=== PATIENT | male | born 1965 | race African-American/Black ===

== ENCOUNTER 2017-03-04 09:25 | Inpatient (IN) ==
[2017-03-04] MEDS ORDERED: SODIUM CHLORIDE 0.9% 1,000 ML IV STA (10:28)
[2017-03-04] MEDS ORDERED: ONDANSETRON 4 MG/2 ML VIAL IV STA (10:28)
--- NOTE | 2017-03-04 10:46 | XRay Report ---
XR abdomen complete w decub Indication: Nausea and vomiting with diarrhea. Scattered air-fluid levels are present. No small bowel dilatation shown. Stool and gas is seen throughout colon, normal amount. No free air. Impression: Gastroenteritis versus mild ileus. No obstruction. PROCEDURE INTERPRETED AT [facility] DEPARTMENT OF RADIOLOGY Final Report Signed by: Amaury Turner M.D.
[2017-03-04] MEDS ORDERED: ONDANSETRON 4 MG/2 ML VIAL ONE (10:55)
[2017-03-04 11:02] LABS: Basophils # 0.1 10*3/uL (0.0-0.2); Basophils % 0.9 % (0.0-0.8); Eosinophils % 0.5 % (0.00-10.9); Hematocrit 29.3 VOL% (42.0-52.0); Immature Granulocytes % 0.9 %; Immature Granulocytes Absolute 0.07 #; Lymphocytes # 1.6 10*3/uL (1.4-4.0); Lymphocytes % 21.6 % (21.2-54.2); Mean Corpuscular HGB Conc 37.5 GM/DL (32-36); Mean Corpuscular Hemoglobin 36 PG (27-34); Mean Corpuscular Volume 95.8 FL (87-102); Mean Platelet Volume 10.6 FL (9.6-12.0); Monocytes # 0.5 10*3/uL (0.11-0.8); Monocytes % 6.7 % (1.7-12.7); Neutrophils # 5.3 10*3/uL (1.4-7.4); Neutrophils % 69.4 % (38.7-73.9); Platelet Count 100 T/CUMM (130-400); Red Blood Count 3.06 MC/CUMM (3.8-5.5); Red Cell Distribution Width 13.5 % (9.3-17.3); White Blood Count 7.6 T/CUMM (4-12)
[2017-03-04 11:38] LABS: Albumin 3.1 G/DL (3.4-5.0); Bilirubin,Total 3.1 MG/DL (0.2-1.0); Calcium 9.2 MG/DL (8.5-10.1); Osmolality,Calculated 270.7 MOS/KG (273-304); Potassium 3.2 MMOL/L (3.5-5.1); Total Protein 8.7 G/DL (6.4-8.3)
--- NOTE | 2017-03-04 11:52 | Emergency Department Note ---
Arrival - Arrival Chief Complaint: Nausea/Vomiting/Diarrhea Stated Complaint: dizziness,vomitting blood,weakness ED Nursing Triage Note: reports n/v/d not feeling well dizzy for about one week. reports vomiting up blood several times a day. reports blood is not bright red but not black in color. reports was dx with cirrhosis back in june. Mode of Arrival: Ambulatory Limitations: No Limitations Source: Patient, Old Records Reviewed, RN Notes Reviewed Time Seen by Provider: 03/04/17 10:22 - History of Present Illness HPI Narrative: - History of Present Illness 52-year-old black male presents to ED with CC of: nausea, vomiting, vomiting blood x 1 week, weak and dizzy Fever: no Keeping fluids down: Minimal amount Normal urine output: no PCP: none GI: Dr. Dejesus PMHx: Cirrhosis with previous GI bleeds, gastric ulcers, history of seizures, is not on any medications for that Onset (ago): week(s) Consistency: constant Severity: moderate Allergies/Adverse Reactions: Allergies Allergy/AdvReac Type Severity Reaction Status Date / Time No Known Allergies Allergy Verified 07/13/16 11:38 Home Medications: Home Medications Medication Instructions Recorded Confirmed Type Pantoprazole Tab [Protonix Tab] 40 mg PO DAILY 03/04/17 03/04/17 History Potassium Chloride 20 meq PO DAILY 03/04/17 03/04/17 History Spironolactone 100 mg PO DAILY 03/04/17 03/04/17 History Review of System - Review of System 12 point system: reviewed and no additional remarkable complaints except as stated - Review of System Constitutional: Absent: chills, fever Respiratory: Absent: respiratory distress, wheezing Cardiovascular: Absent: chest pain Gastrointestinal: Present: as per HPI, nausea, vomiting, hematemesis, hematochezia. Absent: diarrhea, constipation, melena Neurological: Present: weakness, other (Lightheaded) Medical,Surgical,& Family Hx - Medical History Neurology: History of: Seizures (2005--none since and no meds) Gastrointestinal: History of: Liver Problems (Cirrhosis liver biopsy 01/2016), GI Problems (gastric ulcers 01/2016) - Family History Family History: Reports;: Family Diabetes, Family Hypertension, Family Stroke Denies;: Family Cancer - Social History Smoking Status: Never smoker Exam Physical Examination: - General General appearance: alert, in no apparent distress - Head Head exam: Present: atraumatic, normocephalic - Eye Eye exam: Present: normal appearance, PERRL, normal ocular movement - ENT ENT exam: Present: Bright red blood present on tongue and mouth, normal oropharynx, mucous membranes moist - Neck Neck exam: Present: normal inspection, full ROM - Chest Chest inspection: Present: normal inspection, symmetric chest wall rise - Respiratory Respiratory exam: Present: normal lung sounds bilaterally. Absent: rales, rhonchi, wheezes - Cardiovascular Cardiovascular exam: Present: Tachycardic rate, patient placed on monitor, normal rhythm, normal heart sounds, no murmur - Abdominal Exam Abdominal exam: Present: soft, normal bowel sounds. Absent: distention, tenderness, masses, hernia - Extremities Exam Extremities exam: Present: normal inspection, full ROM - Musculoskeletal: Present: Normal gait, normal posture - Neurological Exam Neurological exam: Present: alert, oriented X3, normal coordination absent: motor sensory deficit - Psychiatric Psychiatric exam: Present: normal affect, normal mood, oriented to time, oriented to person, oriented to place, speech is normal, memory intact - Skin Skin exam: Present: warm, dry, intact, no rash, no growths, no abnormal pigmentation observed Vital Signs: Vital Signs Temperature 99.1 F 03/04/17 09:37 Pulse Rate 104 H 03/04/17 09:37 Respiratory Rate 18 03/04/17 09:37 Blood Pressure 125/57 03/04/17 09:37 O2 Sat by Pulse Oximetry 98 03/04/17 09:37 Course - Consultations Time: 12:26 (Chuck with hospitalist service notified of patient presence and status. Will evaluate for admission.) Time: 13:15 (Hospitalist service here to evaluate patient. Will admit.) Procedures - Stool Hemoccult Procedural Steps Taken: stool placed in appropriate test area, developer placed on stool and control areas, controls appropriately positive and negative Hemoccult result: negative Additional Comments: red fluid in mouth hemocult positive Results - Labs CBC & BMP: 03/04/17 10:50 03/04/17 10:50 Lab Results: I have reviewed the patients labs - EKG EKG results: interpreted by ERMParesh (No STEMI, sinus tach) - Diagnostic Findings Procedure: Abdominal x-ray: report reviewed by me, Chest x-ray: report reviewed by me (Gastroenteritis versus mild ileus. No obstruction.) Disposition Clinical Impression: Cirrhosis, Upper gastrointestinal hemorrhage Case discussed with: patient Disposition: Still a Patient Time of Disposition: 13:00 (Admit)
[2017-03-04 12:18] LABS: INR 1.3; PT Patient Result 14.3 SECS; Partial Thromboplastin Time 33.9 SECS (0-40)
[2017-03-04] MEDS ORDERED: ONDANSETRON 4 MG/2 ML VIAL IV PRN (15:05)
[2017-03-04] MEDS ORDERED: ACETAMINOPHEN 325 MG TABLET PO PRN (15:05)
--- NOTE | 2017-03-04 15:15 | Hospitalist History & Physical ---
Assessment and Plan (1) Hematemesis Status: Acute Assessment and plan: This is subjectively reported to us. Patient is not vomiting at this time. Reviewed previous notes from June that the heart included an EGD comment that there were no varices seen. 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 GI consult will be obtained. Also put patient on propranolol 30 mg 3 times daily. Continue Spironolactone. Current Visit: Yes (2) Alcoholic hepatitis Status: Acute Assessment and plan: Patient has elevated transaminases with AST of 3 times a OT. Total bilirubin of 3.1. His alk phos is 121 coag profile is optimal. Albumin of 3.1 very low serum glucose 54. Patient needs to be observed while here. His CMP and magnesium in the morning. Current Visit: Yes (3) Anemia Status: Chronic Assessment and plan: This could be a chronic anemia with reduce Red cell mass MCV of 95.8 (normal) and a normal RDW alcohol marrow is a possibility. Current Visit: No History of Present Illness Chief complaint: Hematemesis History of present illness: Mr. Escobedo is a 52 year old male history of alcoholic cirrhosis with history of prior variceal bleeds who states that in the past 7 days he has not been able to keep something down. This morning he noticed bright red in his vomitus. He has been weak feels dizzy on standing up. Is able to communicate without any problem cognitive output is normal there is no fevers been no is complaining of being chilly. Regarding his alcohol intake he says he drinks 1 can every other day sometimes not even drinking. This been for the last year since he had the last event of upper GI bleed. I noticed that he is on Spironolactone but I do not see any nonselective beta-jai. He has no known drug allergies. His blood pressure is robust here mean arterial pressure around 79 heart rate of 104 beats a minute regular Inasmuch of the history goes however there was an EGD done in June of last year which did not demonstrate any varices was a lot of retained food material in the stomach in spite of operative procedure protocol. Also paresis was suggested. Home Medications Medication Instructions Recorded Confirmed Type Pantoprazole Tab [Protonix Tab] 40 mg PO DAILY 03/04/17 03/04/17 History Potassium Chloride 20 meq PO DAILY 03/04/17 03/04/17 History Spironolactone 100 mg PO DAILY 03/04/17 03/04/17 History Allergies Allergy/AdvReac Type Severity Reaction Status Date / Time No Known Allergies Allergy Verified 07/13/16 11:38 Medical,Surgical,& Family Hx - Medical History Psychological: History of: Psychiatric/Substance Abuse Tx (patient drinks beer daily, states he drinks 1 beer daily) No history of: Anxiety Disorders, ADHD, Behavior Problems, Bipolar Disorder, Depression, Previous Suicide Attempt Neurology: History of: Seizures (2005--none since and no meds) Gastrointestinal: History of: Liver Problems (Cirrhosis liver biopsy 01/2016), GI Problems (gastric ulcers 01/2016) - Surgical History Thoracic Surgeries: Patient denies;: Lobectomy - Family History Family History: Reports;: Family Diabetes, Family Hypertension, Family Stroke Denies;: Family Cancer - Social History Smoking Status: Never smoker Frequency of Alcohol Use: None Type of Drug Use: None Review of systems: 12 point system assessment was done. Patient is not vomiting that now he is not nauseous he does look rather tired asthenic and dry. He has a mild check. He denies heavy use of alcohol for the last year. Review of system therefore significant for the chief complaint history of presenting illness and past medical history. As stated in subjective information there were no varices seen on the rest and also upper endoscopy. So paresis or return for it was suggested on biopsy and liver biopsy there was mention of possibility of hemochromatosis however the patient had received pints of blood then. To be checking ferritin around this time to see if hemochromatosis can be suggested. He does acknowledge feeling chilly but no fever Exam - Constitutional Vitals: Period Temp Pulse Resp BP Sys/Stein Pulse Ox Last 24 Hr 98.6 F-99.1 F 100-104 18-20 125-155/57-83 98-98 General appearance: normal weight, no acute distress - Head Head exam: Present: normocephalic, atraumatic - Eye Eye exam: Present: EOMI, other (Dusky sclera but no icterus) Pupils: Present: TRENT - ENT ENT exam: Present: normal exam - Neck Neck exam: Present: normal inspection - Cardiovascular Cardiovascular exam: Present: tachycardia, other (Sinus tachycardia) - GI/Abdominal GI/Abdominal exam: Present: normal bowel sounds, soft, other (Diffuse tenderness in all 4 quadrants) - Extremities Exam Extremities exam: Present: full ROM, other (Generalized weakness with a fine tremor) - Neurological Exam Neurological exam: Present: oriented X3, CN II-XII intact - Psychiatric Psychiatric exam: Present: normal affect, normal mood, other (Optimal cognitive output) - Skin Skin exam: Present: normal color, warm, dry Results - Labs CBC & BMP: 03/04/17 10:50 03/04/17 10:50 Lab Results: I have reviewed the past 24 hour labs (Noted chronic looking anemia with thrombocytopenia most likely from consumption of the splenic structures as a result from several chronic cirrhosis and hypokalemia and hypoglycemia due to poor oral intake she did receive D5 normal saline banana bag with multivitamins start 100 cc an hour for the next 10 hours.)
[2017-03-04] MEDS: SODIUM CHLORIDE 0.9% 1,000 ML IV SCH ×2 (15:31→22:41)
[2017-03-04 15:53] LABS: Hematocrit 28.7 VOL% (42.0-52.0); Hemoglobin 10.5 GM/DL (14.0-18.0)
[2017-03-04] MEDS: POTASSIUM CHLORIDE 20 MEQ TABLET PO PRN ×4 (16:43→22:39)
--- NOTE | 2017-03-04 16:43 | Gastrointestinal Consult Note ---
Assessment and Plan (1) Upper gastrointestinal hemorrhage Status: Acute Assessment and plan: The patient is having a scant hematemesis with his nausea and vomiting which may be related to underlying gastroparesis versus gastritis versus gastroenteritis. His previously been scoped and not found to have any varices. Liver biopsy shows early cirrhosis and the patient does not typically have low platelet count, the amount of alcohol taken recently is only described as one can every other day but the patient may be minimizing about his recent alcohol intake. We will perform upper endoscopy given the drop in his hematocrit from 36.7% down to 28% at this time and see if we can distinguish a Rosa Maria-Velasquez tear versus esophagitis versus gastritis or other bleeding source. The last upper endoscopy done in June 2016 demonstrated gastroparesis. Patient was advised of risks of the upper endoscopy which include but are not limited to: Bleeding, infection, perforation, cardiac and pulmonary compromise. Current Visit: Yes (2) Acute posthemorrhagic anemia Status: Acute Assessment and plan: As noted above. Current Visit: Yes (3) Alcoholic cirrhosis of liver with ascites Status: Acute Assessment and plan: Patient has been demonstrated to have early cirrhosis on liver biopsy. His bilirubin is certainly up from 0.8 at baseline when taken back on 01/17/17 now up to 3.10 level. This may be associated with dehydration from the 3 days of vomiting he has had, will hydrate aggressively tonight and proceed with upper endoscopy tomorrow, I suspect the liver function tests will start to improve markedly over the next 48-72 hours. Current Visit: Yes (4) Nausea and vomiting Status: Acute Assessment and plan: Again this may be secondary to a gastroenteritis but we should be able to tell more one-way perform upper endoscopy tomorrow. I suspect this patient may have early dehydration although the creatinine does not point towards this as much as the hypokalemia does. Current Visit: Yes History of Present Illness Chief complaint: Hematemesis and decrease in hematocrit from 36.7%-->28.7 History of present illness: Mr. Escobedo is a 52 year old male who is well-known to me from previous GI workup done in my office as recently as 01/17/17. He has a known history of alcoholic hepatitis/cirrhosis is been cirrhotic for at least the last 1 year with a liver biopsy done previously on 01/24/16 showing severe steatohepatitis marked steatosis with cholestasis, bridging fibrosis was seen along with early cirrhosis. Low-grade ascites for the last one-point fluid in the abdomen, and mild jaundice. This patient was last seen in my office on 01/17/17. His hematocrit at that time was noted to be 36.7% with a hemoglobin of 13.3 and white blood cell count 6.6. Platelet count was 155. His alpha-fetoprotein level was 7.5 at that time. ALT was 33 with an AST of 88, alkaline phosphatase 113, and a total bilirubin 0.8 with a direct bilirubin of 0.4. Total protein and albumin were actually 9.3 and 3.0 respectively. I do note that this patient had been previously worked up when his hematocrit dropped down to 22% required 2 unit transfusion back in late June [address] Manning did both EGD and colonoscopy on 07/16/16. There was left-sided diverticulosis presumably the source of the patient's hemorrhage with large internal hemorrhoids. Upper endoscopy was done at that time and demonstrated some retained food but no gross evidence of varices. As a result, the patient was not started on any beta-blockers. He may certainly have a element of gastroparesis. He is continued to drink approximately 1 can of beer every other day by report to me. When I saw him in the office I placed him on pantoprazole and since his normal girth seemed to great deal better than it had been in the hospital we cut back his Lasix to 20 mg per day and decreased his Spironolactone to 50 mg per day as well. He really was not felt to need a repeat colonoscopy until June 2026 and we attempted to get him vaccinated for hepatitis a and B. The patient states that he is returned to the hospital at this time for 3 days worth of nausea/vomiting/inability to keep down fluids and scant amount of hematemesis with the vomiting episodes. This may be a gastroenteritis versus an exacerbation of gastroparesis versus esophagitis or gastritis. His hematocrit certainly has dropped and is currently down to 28.7% . He has been feeling some mild subjective fevers and chills but denies sick contacts or eating anything that he thinks might have been spoiled/food poisoning. He has not had any constipation or diarrhea. He feels bad because he has not been able to eat for several days. Liver function tests are markedly changed from previously: ALT is noted to be 77 with an AST of 257, total bilirubin is 3.10 with a direct bilirubin of 1.50 and alkaline phosphatase of 121. Lipase level is 188, ferritin levels 2943. It is unknown whether this is due to an acute phase reactant, glucose levels down to 54. Hepatitis A, B, and C were all checked back on 01/21/16 when these were noted to be negative. Reviewing the patient's old blood chemistries patient CA 19-9 was noted to be 231.2 back on 01/21/16 and this bears recheck. Home Medications Medication Instructions Recorded Confirmed Type Pantoprazole Tab [Protonix Tab] 40 mg PO DAILY 03/04/17 03/04/17 History Potassium Chloride 20 meq PO DAILY 03/04/17 03/04/17 History Spironolactone 100 mg PO DAILY 03/04/17 03/04/17 History Allergies Allergy/AdvReac Type Severity Reaction Status Date / Time No Known Allergies Allergy Verified 07/13/16 11:38 Medical,Surgical,& Family Hx - Medical History Psychological: History of: Psychiatric/Substance Abuse Tx (patient drinks beer daily, states he drinks 1 beer daily) No history of: Anxiety Disorders, ADHD, Behavior Problems, Bipolar Disorder, Depression, Previous Suicide Attempt Neurology: History of: Seizures (2005--none since and no meds) Gastrointestinal: History of: Liver Problems (Cirrhosis liver biopsy 01/2016), GI Problems (gastric ulcers 01/2016) - Surgical History Thoracic Surgeries: Patient denies;: Lobectomy - Family History Family History: Reports;: Family Diabetes, Family Hypertension, Family Stroke Denies;: Family Cancer - Social History Smoking Status: Never smoker Frequency of Alcohol Use: None Type of Drug Use: None Review of systems: Constitutional: Admits to low-grade fever, chills, nausea, and vomiting Eyes: Denies dry eyes, and scleral icterus HENT: Admits to occasional headaches Cardiovascular: Denies acute chest pain and claudication Respiratory: Denies shortness of breath, wheezing, and difficulty breathing, denies cough Gastrointestinal: As noted in the HPI Genitourinary: Denies dysuria and hematuria Neurologic: Denies vision loss, and loss of sensation Musculoskeletal: Does have some joint swelling, joint stiffness, and muscular weakness Psychiatric: Denies depression and marleen symptoms Heme-Lymph: Denies easy bruising, lymph node enlargement or tenderness, night sweats, excessive bleeding Allergies-immunologic: Denies pruritus and rhinorrhea Exam - Constitutional Vitals: Period Temp Pulse Resp BP Sys/Stein Pulse Ox Last 24 Hr 98.6 F-99.1 F 100-104 18-20 125-155/57-83 98-100 General appearance: mild distress - Head Head exam: Present: normocephalic - Eye Eye exam: Present: EOMI Pupils: Present: TRENT - ENT ENT exam: Present: normal exam - Respiratory Respiratory exam: Present: clear to auscultation bilaterally. Absent: rales, rhonchi, wheezes - Cardiovascular Cardiovascular exam: Present: regular rate and rhythm. Absent: gallop, rubs, systolic murmur - GI/Abdominal GI/Abdominal exam: Present: normal bowel sounds, distended (Slight distention), guarding (Voluntary, mild), tenderness (Severe tenderness especially in the epigastric region), soft. Absent: rebound Results - Labs CBC & BMP: 03/04/17 15:23 03/04/17 10:50
[2017-03-04 17:09] LABS: % Iron Saturation 69.9 % (18-50)
[2017-03-04] MEDS: THIAMINE INJ 100 MG, FOLIC ACID INJ 1 MG, MAGNESIUM SULF INJ 2 GM, MULTIVITAMIN INJ 10 ... IV SCH (17:32)
[2017-03-04] MEDS: PROPRANOLOL 40 MG TABLET PO SCH (20:49)
[2017-03-04] MEDS: PANTOPRAZOLE 40 MG VIAL IV SCH (20:51)
[2017-03-04 21:40] LABS: Hematocrit 23.1 VOL% (42.0-52.0); Hemoglobin 8.6 GM/DL (14.0-18.0)
[2017-03-05] MEDS: SODIUM CHLORIDE 0.9% 1,000 ML IV SCH ×3 (05:22→22:15)
[2017-03-05 06:46] LABS: Basophils % 0.4 % (0.0-0.8); Eosinophils # 0.1 10*3/uL (0.0-0.87); Eosinophils % 1.4 % (0.00-10.9); Hematocrit 27.1 VOL% (42.0-52.0); Immature Granulocytes % 0.4 %; Immature Granulocytes Absolute 0.02 #; Lymphocytes % 20.8 % (21.2-54.2); Mean Corpuscular HGB Conc 36.9 GM/DL (32-36); Mean Corpuscular Hemoglobin 36 PG (27-34); Mean Corpuscular Volume 96.1 FL (87-102); Mean Platelet Volume 10.6 FL (9.6-12.0); Monocytes # 0.3 10*3/uL (0.11-0.8); Monocytes % 6.4 % (1.7-12.7); Neutrophils # 3.4 10*3/uL (1.4-7.4); Neutrophils % 70.6 % (38.7-73.9); Platelet Count 72 T/CUMM (130-400); Red Blood Count 2.82 MC/CUMM (3.8-5.5); Red Cell Distribution Width 13.1 % (9.3-17.3); White Blood Count 4.9 T/CUMM (4-12)
[2017-03-05 06:58] LABS: INR 1.4; PT Patient Result 15.4 SECS
[2017-03-05 07:10] LABS: Hypochromasia 1+; Platelet Estimate Decreased
[2017-03-05 07:19] LABS: Albumin 2.7 G/DL (3.4-5.0); Bilirubin,Direct 1.4 MG/DL (0.0-0.20); Bilirubin,Indirect 1.9 MG/DL (0.0-1.0); Bilirubin,Total 3.3 MG/DL (0.2-1.0); Total Protein 7.7 G/DL (6.4-8.3)
[2017-03-05 07:27] LABS: Free T4 (Free Thyroxine) 0.97 NG/DL (0.76-1.46); Osmolality,Calculated 262.4 MOS/KG (273-304); Potassium 3.8 MMOL/L (3.5-5.1); Risk Ratio 2.02; Thyroid Stimulating Hormone 1.06 uIU/ml (0.358-3.74)
--- NOTE | 2017-03-05 08:24 | Hospitalist Progress Note ---
Hospitalist: Subjective Interval history: Patient denies any n/v/hematemesis. He notes a poor appetite. Exam - Constitutional Vitals: Period Temp Pulse Resp BP Sys/Stein Pulse Ox Last 24 Hr 97.8 F-99.1 F 67-104 16-20 119-155/57-83 97-100 General appearance: normal weight, no acute distress - Head Head exam: Present: normal inspection - Eye Eye exam: Present: EOMI Pupils: Present: TRENT - ENT ENT exam: Present: normal exam - Respiratory Respiratory exam: Present: clear to auscultation bilaterally. Absent: rales, rhonchi, wheezes - Cardiovascular Cardiovascular exam: Present: rubs. Absent: diastolic murmur, systolic murmur - GI/Abdominal GI/Abdominal exam: Present: normal bowel sounds, tenderness. Absent: ascites, distended, guarding, rebound (diffuse tenderness without perotineal signs) - Extremities Exam Extremities exam: Absent: edema - Neurological Exam Neurological exam: Present: oriented X3 - Psychiatric Psychiatric exam: Present: normal affect, normal mood - Skin Skin exam: Present: normal color Results - Labs CBC & BMP: 03/05/17 06:28 03/05/17 06:28 - Impressions 1. UGIB 2. Hematemesis, resolved 3. Nausea/vomiting: resolved 4. Anemia 5. Thrombocytopenia, decreasing; monitor 6. Alcoholic cirrhosis Plan: EGD today; continue current support care; transfuse if Hb<7, platelets < 50 (for EGD); appreciate help from GI.
[2017-03-05] MEDS ORDERED: SPIRONOLACTONE 100 MG TABLET PO SCH (09:00)
[2017-03-05] MEDS ORDERED: LIDOCAINE 100 MG/5 ML SYRINGE ONE (09:04)
[2017-03-05] MEDS ORDERED: PROPOFOL 200 MG/20 ML VIAL IV ONE (09:04)
--- NOTE | 2017-03-05 09:20 | Operative Note ---
Date of procedure: 03/05/17 Pre-op diagnosis: Hematemesis in a alcoholic cirrhotic, refractory nausea/ vomiting Post-op diagnosis: other (Gastric ulcers 2, moderate gastroparesis present, mild gastritis, and an incidental 2 cm hiatal hernia noted. Refractory nausea and vomiting is thought secondary to the gastric ulcers and moderate gastroparesis.) Procedure: PROCEDURE: Esophagogastroduodenoscopy (EGD) with cold biopsy for pathology REFERRING PHYSICIAN: Gulshan Crandall MD INDICATIONS: Nausea/vomiting/hematemesis with decreased hematocrit and an alcoholic cirrhosis previously with gastroparesis the prior H&P was reviewed and interrim changes are as noted: From yesterday, 03/04/17 ENDOSCOPIST: Sam Dejesus MD ENDOSCOPE: Olympus Video 100 System upper endoscope ASA CLASS: 3 EXAM: CV: regular rate and rhythm respiratory: Clear without wheezes abdominal: active bowel sounds MEDICATION: Per nursing anesthesia protocol, see their notes PROCEDURE: After discussion of the potential risks and benefits of upper endoscopy, the informed consent was obtained. The patient was then placed in the left lateral decubitus position where sedation was achieved as noted above. Esophageal intubation was performed without difficulty, and the endoscope was advanced through the esophagus, stomach and duodenum. A slow withdrawal was then performed with retroflexion in the stomach for careful inspection of the incisura angularis, fundus and cardia. The scope was then returned to a neutral position and withdrawn through the esophagus. The patient tolerated the procedure well and without complication. BIOPSIES: Gastric antrum/body PHOTOGRAPHS: Obtained FINDINGS: Hypopharynx and Larynx: Normal Esohagoscopy Upper and middle thirds: Normal, no gross evidence of varices Lower third normal, no gross evidence of varices Esophogastric junctions: Normal appearance with an irregular EG junction Gastroscopy: Cardia/Fundus: Moderate amount of retained solid food consistent with gastroparesis, 2 cm hiatal hernia Body: Mild gastritis, biopsied Antrum and pylorus this patient had two 7 mm gastric ulcers consistent with peptic ulcer disease. Biopsies were taken of this area to look for Helicobacter pylori. There was no pyloric stenosis Duodenoscopy: Bulb normal Second and third portions: Normal IMPRESSION: Gastric ulcers 2, moderate gastroparesis present, mild gastritis , and an incidental 2 cm hiatal hernia noted. Refractory nausea and vomiting is thought secondary to the gastric ulcers and moderate gastroparesis. RECOMMENDATIONS: Follow up for biopsy results in 1-2 weeks by phone [phone] Continue anti-gastroesophageal reflux measures (avoid carbonated and acidic beverages, avoid eating within 2 hours of bedtime, avoid tight fitting clothing , and elevate the front bed posts 6 inches prior to sleeping. Continue Protonix 40 mg twice daily by IV while the patient is vomiting, advance to clear liquids as tolerated Observe on Reglan 10 mg every 6 hours scheduled dosing, if he does well with this we can certainly switch him over to the elixir perhaps tomorrow or the following day. Observe for tardive dyskinesia side effects. The patient will need to be rescoped with EGD in 2 months to make sure that these ulcers have healed. Sam Dejesus MD COPY TO: Gulshan Crandall MD Anesthesia: MAC Surgeon / Physician: Sam Dejesus Estimated blood loss: minimal Specimens: other (cecum/ascending/descending/sigmoid) Condition: stable Disposition: post procedure unit ([facility]) Results - Labs CBC & BMP: 03/05/17 06:28 03/05/17 06:28 Discharge Plan - Discharge Medications No Action Potassium Chloride 20 meq PO DAILY Pantoprazole Tab [Protonix Tab] 40 mg PO DAILY Spironolactone 100 mg PO DAILY - Follow Up or Referral - Forms/Instructions
--- NOTE | 2017-03-05 09:24 | Gastrointestinal Progress Note ---
Assessment and Plan (1) Upper gastrointestinal hemorrhage Status: Acute Assessment and plan: The patient is having a scant hematemesis with his nausea and vomiting which may be related to underlying gastroparesis versus gastritis versus gastroenteritis. His previously been scoped and not found to have any varices. Liver biopsy shows early cirrhosis and the patient does not typically have low platelet count, the amount of alcohol taken recently is only described as one can every other day but the patient may be minimizing about his recent alcohol intake. We will perform upper endoscopy given the drop in his hematocrit from 36.7% down to 28% at this time and see if we can distinguish a Rosa Maria-Velasquez tear versus esophagitis versus gastritis or other bleeding source. The last upper endoscopy done in June 2016 demonstrated gastroparesis. Patient was advised of risks of the upper endoscopy which include but are not limited to: Bleeding, infection, perforation, cardiac and pulmonary compromise. 03/05/17--the patient's drop in hematocrit proved to be secondary to to small ulcers noted in the gastric antrum, these were not bleeding but look like the source of the bleed. There is mild gastritis surrounding this area, there was no gross evidence of a Rosa Maria-Velasquez tear. The patient did end up having gastroparesis likely participating in the nausea/vomiting. Hematocrit stable at 27.1 percent we will watch and see how he does with equilibration and he is not actively bleeding in the stomach now. There were no gross evidence of varices on today's exam. Current Visit: Yes (2) Acute posthemorrhagic anemia Status: Acute Assessment and plan: As noted above. I have discontinued the propranolol as this was being used to treat varices that are not present. Current Visit: Yes (3) Alcoholic cirrhosis of liver with ascites Status: Acute Assessment and plan: Patient has been demonstrated to have early cirrhosis on liver biopsy. His bilirubin is certainly up from 0.8 at baseline when taken back on 01/17/17 now up to 3.10 level. This may be associated with dehydration from the 3 days of vomiting he has had, will hydrate aggressively tonight and proceed with upper endoscopy tomorrow, I suspect the liver function tests will start to improve markedly over the next 48-72 hours. 03/05/17--The patient's laboratories seem to indicate an element of hemochromatosis. I will have to look over his old biopsy results. See if there was iron staining done, we may need to rebiopsy and get a dry iron weight versus check of genetic testing for hemochromatosis alleles Current Visit: Yes (4) Nausea and vomiting Status: Acute Assessment and plan: Again this may be secondary to a gastroenteritis but we should be able to tell more one-way perform upper endoscopy tomorrow. I suspect this patient may have early dehydration although the creatinine does not point towards this as much as the hypokalemia does. 03/05/17--The patient does have gastric ulcers in combination with gastroparesis. We will start treatment with Reglan IV to see if this helps out with his ability to tolerate p.o. and course treat him with Protonix twice daily by IV as well. See if he can tolerate some clear liquids today. Current Visit: Yes Gastroenterology - PN: Subj Interval history: Patient feels marginally better from yesterday. He is not hungry at all. Exam (Progress Note) - Constitutional Vitals: Period Temp Pulse Resp BP Sys/Stein Pulse Ox Last 24 Hr 97.8 F-99.1 F 62-104 13-20 119-161/57-93 97-100 General appearance: mild distress - Eye Eye exam: Present: EOMI Pupils: Present: TRENT - Respiratory Respiratory exam: Present: clear to auscultation bilaterally - Cardiovascular Cardiovascular exam: Present: regular rate and rhythm - GI/Abdominal GI/Abdominal exam: Present: normal bowel sounds, tenderness (Especially around the epigastric region), soft. Absent: distended, rebound - Extremities Exam Extremities exam: Absent: edema - Neurological Exam Neurological exam: Present: alert, oriented X3 - Psychiatric Psychiatric exam: Present: normal affect, normal mood - Skin Skin exam: Present: warm Results - Labs CBC & BMP: 03/05/17 06:28 03/05/17 06:28
--- NOTE | 2017-03-05 09:53 | EKG Report ---
Stationary ECG Study [facility] Test Date: 03/05/2017 9:51:47 AM Pat Name: KODY PACHECO Department: Room: 517 Gender: M Office Manager: : 1965 Requested by: Isis Weber Order Number: [id number] Reading MD: FABIANA DURÁN Intervals [place] Rate: 64 P: 59 RI: 157 QRS: -3 QRSD: 90 T: 14 QT: 429 QTc: 439 Interpretive Statements SINUS RHYTHM MODERATE VOLTAGE CRITERIA FOR LVH, CONSIDER NORMAL VARIANT Electronically Signed On 03-05-17 15:50:03 CDT by FABIANA DURÁN [email or web address]
[2017-03-05 10:04] LABS: Hematocrit 30.7 VOL% (42.0-52.0); Hemoglobin 11.4 GM/DL (14.0-18.0)
[2017-03-05] MEDS: SPIRONOLACTONE 100 MG TABLET PO SCH (11:52)
[2017-03-05] MEDS: PANTOPRAZOLE 40 MG VIAL IV SCH ×2 (11:53→20:23)
[2017-03-05] MEDS: PROPRANOLOL 40 MG TABLET PO SCH (13:22)
[2017-03-05] MEDS: METOCLOPRAMIDE 10 MG/2 ML VIAL IV SCH ×3 (13:54→22:59)
--- NOTE | 2017-03-05 14:40 | Anesthesia Post-Op ---
Anesthesia Post OP - Post Ansesthetic Evaluation Patient seen in post op: Yes Resp: within normal limits CV: within normal limits Mental: within normal limits Temp: within normal limits [id number]-[id number]: within normal limits Nausea and Vomiting: within normal limits Pain: within normal limits
[2017-03-05] MEDS: THIAMINE INJ 100 MG, FOLIC ACID INJ 1 MG, MAGNESIUM SULF INJ 2 GM, MULTIVITAMIN INJ 10 ... IV SCH (16:44)
[2017-03-06] MEDS ORDERED: LORazepam 2 MG/1 ML VIAL IV PRN (02:00)
[2017-03-06] MEDS: ZIPRASIDONE 20 MG/1 ML VIAL IM PRN ×2 (03:29→19:56)
[2017-03-06] MEDS: SODIUM CHLORIDE 0.9% 1,000 ML IV SCH ×4 (04:31→20:54)
--- NOTE | 2017-03-06 07:13 | Gastrointestinal Progress Note ---
Assessment and Plan (1) Upper gastrointestinal hemorrhage Status: Acute Assessment and plan: The patient is having a scant hematemesis with his nausea and vomiting which may be related to underlying gastroparesis versus gastritis versus gastroenteritis. His previously been scoped and not found to have any varices. Liver biopsy shows early cirrhosis and the patient does not typically have low platelet count, the amount of alcohol taken recently is only described as one can every other day but the patient may be minimizing about his recent alcohol intake. We will perform upper endoscopy given the drop in his hematocrit from 36.7% down to 28% at this time and see if we can distinguish a Rosa Maria-Velasquez tear versus esophagitis versus gastritis or other bleeding source. The last upper endoscopy done in June 2016 demonstrated gastroparesis. Patient was advised of risks of the upper endoscopy which include but are not limited to: Bleeding, infection, perforation, cardiac and pulmonary compromise. 03/05/17--the patient's drop in hematocrit proved to be secondary to to small ulcers noted in the gastric antrum, these were not bleeding but look like the source of the bleed. There is mild gastritis surrounding this area, there was no gross evidence of a Rosa Maria-Velasquez tear. The patient did end up having gastroparesis likely participating in the nausea/vomiting. Hematocrit stable at 27.1 percent we will watch and see how he does with equilibration and he is not actively bleeding in the stomach now. There were no gross evidence of varices on today's exam. 03/06/17--Again the patient is noted to be somewhat agitated this morning but does not appear to have any further bleeding with a hematocrit of 30.7%. The nurse observes that he may be going into early DTs and is likely about to check out AMA. I have written him some prescriptions for Protonix twice daily. He needs to follow-up for repeat upper endoscopy in 8 weeks. Biopsies are pending. Unless he plan to keep him to observe him for the delirium tremens he can be discharged today. His liver function tests speak to ongoing alcohol use. Current Visit: Yes (2) Acute posthemorrhagic anemia Status: Acute Assessment and plan: As noted above. I have discontinued the propranolol as this was being used to treat varices that are not present. 03/06/17--Patient was not noted to be bleeding yesterday from the 2 ulcers in the stomach, alcoholic gastritis noted. No portal hypertensive gastropathy and no varices were observed. Current Visit: Yes (3) Alcoholic cirrhosis of liver with ascites Status: Acute Assessment and plan: Patient has been demonstrated to have early cirrhosis on liver biopsy. His bilirubin is certainly up from 0.8 at baseline when taken back on 01/17/17 now up to 3.10 level. This may be associated with dehydration from the 3 days of vomiting he has had, will hydrate aggressively tonight and proceed with upper endoscopy tomorrow, I suspect the liver function tests will start to improve markedly over the next 48-72 hours. 03/05/17--The patient's laboratories seem to indicate an element of hemochromatosis. I will have to look over his old biopsy results. See if there was iron staining done, we may need to rebiopsy and get a dry iron weight versus check of genetic testing for hemochromatosis alleles. 03/06/17--We may consider liver re-biopsy at some future point in time. Current Visit: Yes (4) Nausea and vomiting Status: Acute Assessment and plan: Again this may be secondary to a gastroenteritis but we should be able to tell more one-way perform upper endoscopy tomorrow. I suspect this patient may have early dehydration although the creatinine does not point towards this as much as the hypokalemia does. 03/05/17--The patient does have gastric ulcers in combination with gastroparesis. We will start treatment with Reglan IV to see if this helps out with his ability to tolerate p.o. and course treat him with Protonix twice daily by IV as well. See if he can tolerate some clear liquids today. 03/06/17--Patient will need some Reglan and I will write him a prescription for this as well. This should help with his nausea and vomiting. Current Visit: Yes Gastroenterology - PN: Subj Interval history: The patient was extremely agitated over the evening time and needed to receive both Geodon and Ativan and despite this is somewhat confused this morning thinking that he is already been discharged and that he already has his prescriptions. We discussed follow-up endoscopy in 8 weeks. His hematocrit this morning is better, currently 30.7%. From my standpoint he can be discharged, I will write him prescription for Protonix 40 mg p.o. twice daily. He absolutely needs to stop drinking as this is likely adding to his erosions in the stomach is likely the cause for his elevated bilirubin. He stated earlier that he was only drinking one can every other day but his liver function tests are elevated for some reason, likely surreptitious drinking. Exam (Progress Note) - Constitutional Vitals: Period Temp Pulse Resp BP Sys/Stein Pulse Ox Last 24 Hr 97.1 F-98.9 F 60-72 13-20 113-161/74-96 96-100 General appearance: mild distress - Head Head exam: Present: normocephalic - Eye Eye exam: Present: EOMI Pupils: Present: TRENT - Respiratory Respiratory exam: Present: clear to auscultation bilaterally. Absent: rhonchi, wheezes - Cardiovascular Cardiovascular exam: Present: regular rate and rhythm - GI/Abdominal GI/Abdominal exam: Present: normal bowel sounds, soft. Absent: distended, tenderness, rebound - Neurological Exam Neurological exam: Present: alert, altered (Mildly confused and agitated) - Psychiatric Psychiatric exam: Present: normal affect, normal mood - Skin Skin exam: Present: warm Results - Labs CBC & BMP: 03/05/17 09:58 03/05/17 06:28
[2017-03-06] MEDS ORDERED: ZIPRASIDONE 20 MG/1 ML VIAL IM ONE (07:34)
--- NOTE | 2017-03-06 08:26 | Hospitalist Progress Note ---
Assessment and Plan (1) Delirium tremens Status: Acute Assessment and plan: He has alcohol withdrawal syndrome with delirium tremens. I will treat him with Lorazepam and ziprasidone as needed. Current Visit: Yes (2) Gastric ulcer Status: Acute Assessment and plan: He was found at EGD to have small antral gastric ulcers. Gastroenterology presumes that these were the site of his upper gastrointestinal bleed, although there was no active bleeding noted at the time of the endoscopy. I will treat him with pantoprazole as recommended by gastroenterology. Current Visit: No (3) Cirrhosis Status: Chronic Assessment and plan: His previously known history of alcoholic cirrhosis demonstrated by liver biopsy. His total bilirubin is 3.3, direct bilirubin 1.4, and INR 1.4. Current Visit: Yes Qualifiers: Hepatic cirrhosis type: alcoholic cirrhosis (4) Upper gastrointestinal hemorrhage Status: Acute Assessment and plan: His hematocrit is 30.7 and hemoglobin 11.4 today. He does not appear to be experiencing any further gastrointestinal bleeding. Current Visit: Yes Hospitalist: Subjective Interval history: The patient is agitated, confused, and disoriented today. He is presently requiring restraints in order to control him. His sister confirms that he has been consuming much more alcohol than he has admitted. He has a previously known history of alcoholic cirrhosis. He underwent an EGD yesterday demonstrating small gastric ulcers presumed to be the cause of his gastrointestinal bleeding. He appears to be experiencing alcohol withdrawal syndrome with delirium tremens for which she will need to remain in the hospital for treatment with appropriate sedation. I have begun him on ziprasidone and Lorazepam. Exam - Constitutional Vitals: Period Temp Pulse Resp BP Sys/Stein Pulse Ox Last 24 Hr 97.1 F-98.9 F 61-72 13-20 113-161/74-96 96-100 General appearance: no acute distress - Head Head exam: Present: normal inspection - Neck Neck exam: Present: normal inspection - Respiratory Respiratory exam: Present: clear to auscultation bilaterally - Cardiovascular Cardiovascular exam: Present: regular rate and rhythm - GI/Abdominal GI/Abdominal exam: Present: normal bowel sounds, soft, other (Nontender with no palpable masses or hepatosplenomegaly.) - Extremities Exam Extremities exam: Present: normal inspection - Neurological Exam Neurological exam: Present: other (Confused and disoriented. He is less agitated since receiving ziprasidone.) - Psychiatric Psychiatric exam: Present: agitated, anxious - Skin Skin exam: Present: normal color, warm, intact Results - Labs CBC & BMP: 03/05/17 09:58 03/05/17 06:28
[2017-03-06] MEDS: METOCLOPRAMIDE 10 MG/2 ML VIAL IV SCH (08:51)
[2017-03-06] MEDS: SPIRONOLACTONE 100 MG TABLET PO SCH (10:45)
[2017-03-06] MEDS: PANTOPRAZOLE 40 MG VIAL IV SCH ×2 (11:59→20:50)
--- NOTE | 2017-03-06 14:21 | Pathology Report from [facility] ---
[facility] ACCESSION # : [id number] PATIENT NAME : Kody Escobedo ORDERING DR : Sam Dejesus MD CLINICAL HX: Hematemesis in an alcoholic cirrhotic; refractory n/v POST-OP DX: Gastric ulcers, gastritis SPECIMEN INFO: GERHARD/ulcer margins GROSS DESCRIPTION: The specimen is received in formalin labeled with the patients name and consists of a 0.7 x 0.2 cm aggregate of mcconnell tissue. Submitted in one cassette. DIAGNOSIS FOR KODY ESCOBEDO: GERHARD/ULCER MARGINS BIOPSIES: Acute and chronic inflammation, reactive and regenerative mucosal changes. H. pylori not seen on H &E or special stain with appropriate control. COLLECTED DATE: 03/05/2017 [facility] REPORT DATE: 03/06/2017 ELECTRONICALLY SIGNED BY: Shawn Lu M.D. 03/06/2017 - 9:30:25 [facility]
[2017-03-06] MEDS: LORazepam 2 MG/1 ML VIAL IV PRN (16:09)
[2017-03-06] MEDS: THIAMINE INJ 100 MG, FOLIC ACID INJ 1 MG, MAGNESIUM SULF INJ 2 GM, MULTIVITAMIN INJ 10 ... IV SCH (16:10)
[2017-03-07] MEDS: LORazepam 2 MG/1 ML VIAL IV PRN (00:42)
[2017-03-07] MEDS: SODIUM CHLORIDE 0.9% 1,000 ML IV SCH ×3 (06:24→18:22)
[2017-03-07 07:06] LABS: Basophils # 0.1 10*3/uL (0.0-0.2); Basophils % 0.7 % (0.0-0.8); Eosinophils # 0.1 10*3/uL (0.0-0.87); Eosinophils % 0.9 % (0.00-10.9); Hematocrit 31.5 VOL% (42.0-52.0); Hemoglobin 12.1 GM/DL (14.0-18.0); Immature Granulocytes % 0.5 %; Immature Granulocytes Absolute 0.04 #; Lymphocytes # 1.7 10*3/uL (1.4-4.0); Lymphocytes % 22.4 % (21.2-54.2); Mean Corpuscular HGB Conc 38.4 GM/DL (32-36); Mean Corpuscular Hemoglobin 36 PG (27-34); Mean Corpuscular Volume 94.6 FL (87-102); Monocytes # 0.9 10*3/uL (0.11-0.8); Monocytes % 11.8 % (1.7-12.7); NRBC # 0.02 10*3/uL; Neutrophils # 4.9 10*3/uL (1.4-7.4); Neutrophils % 63.7 % (38.7-73.9); Platelet Count 96 T/CUMM (130-400); Red Blood Count 3.33 MC/CUMM (3.8-5.5); Red Cell Distribution Width 13.1 % (9.3-17.3); White Blood Count 7.7 T/CUMM (4-12)
[2017-03-07 07:10] LABS: INR 1.4
[2017-03-07 07:33] LABS: Albumin 2.3 G/DL (3.4-5.0); Bilirubin,Total 3.7 MG/DL (0.2-1.0); Calcium 8.3 MG/DL (8.5-10.1); Osmolality,Calculated 271.7 MOS/KG (273-304); Potassium 3.4 MMOL/L (3.5-5.1); Total Protein 7.1 G/DL (6.4-8.3)
[2017-03-07 07:59] LABS: Polychromasia Slight
[2017-03-07] MEDS: SPIRONOLACTONE 100 MG TABLET PO SCH (09:09)
[2017-03-07] MEDS: PANTOPRAZOLE 40 MG VIAL IV SCH ×2 (09:09→21:57)
[2017-03-07] MEDS: POTASSIUM CHLORIDE 20 MEQ TABLET PO PRN (09:10)
--- NOTE | 2017-03-07 10:12 | Hospitalist Progress Note ---
Assessment and Plan (1) Delirium tremens Status: Acute Assessment and plan: He has alcohol withdrawal syndrome with delirium tremens. This slowly improving. Plan continue with Lorazepam and ziprasidone as needed, banana bag. Current Visit: Yes (2) Gastric ulcer Status: Acute Assessment and plan: He was found at EGD to have small antral gastric ulcers. Gastroenterology presumes that these were the site of his upper gastrointestinal bleed, although there was no active bleeding noted at the time of the endoscopy. H/H is stable. Plan Continue with pantoprazole as recommended by gastroenterology. Current Visit: No (3) Cirrhosis Status: Chronic Assessment and plan: His previously known history of alcoholic cirrhosis demonstrated by liver biopsy. Continue to follow liver enzymes.GI thinks he may consider liver re- biopsy at some future point in time. Avoid hepatotoxics Current Visit: Yes Qualifiers: Hepatic cirrhosis type: alcoholic cirrhosis (4) Upper gastrointestinal hemorrhage Status: Acute Assessment and plan: H/H is stable.He does not appear to be experiencing any further gastrointestinal bleeding. Current Visit: Yes (5) Acute encephalopathy Status: Acute Assessment and plan: most likely due to delirium tremens to r/o hepatic encephalopathy. Plan ammonia level continue current care Current Visit: Yes (6) Thrombocytopenia Status: Acute Assessment and plan: due to alcoholic cirrhosis. Plan Continue to watch Current Visit: Yes (7) Hypokalemia Status: Acute Assessment and plan: will replete and get a Mg level. Current Visit: Yes Hospitalist: Subjective Interval history: Patient seen this am. He was a little drowsy but less confused. He was able to tell me his name and where he was. He was placed on restraints yesterday because he was confused and trying to leave the floor. His random blood sugar this am was 123. Exam - Constitutional Vitals: Period Temp Pulse Resp BP Sys/Stein Pulse Ox Last 24 Hr 97.6 F-99.2 F 67-105 16-20 85-153/56-92 94-100 General appearance: no acute distress, other (drowsy) - Head Head exam: Present: normal inspection - Neck Neck exam: Present: normal inspection - Respiratory Respiratory exam: Present: clear to auscultation bilaterally - Cardiovascular Cardiovascular exam: Present: regular rate and rhythm - GI/Abdominal GI/Abdominal exam: Present: normal bowel sounds - Extremities Exam Extremities exam: Present: normal inspection - Neurological Exam Neurological exam: Present: oriented X3 Results - Labs CBC & BMP: 03/07/17 06:49 03/07/17 06:49 Lab Results: I have reviewed the past 24 hour labs
[2017-03-07] MEDS ORDERED: oxyCODONE IR 5 MG TABLET PO PRN (10:20)
[2017-03-07] MEDS ORDERED: POTASSIUM CHLORIDE 20 MEQ/15 ML UDCUP PO ONE (10:24)
--- NOTE | 2017-03-07 11:35 | CT Report ---
CT of the head without contrast. Indication: Altered mental status. No prior studies. There is calcific plaque present within the intracranial internal carotid arteries. There is scattered mucosal thickening within the paranasal sinuses. The mastoid air cells are clear. The calvarium is intact. There is generalized prominence of the ventricles and sulci consistent with atrophy of aging. There is no mass effect or midline shift. There is no evidence of acute hemorrhage. No cortical infarcts are seen at this time. Impression: Mild paranasal sinus disease. No acute intracranial process is seen. The CT exam was performed using one or more of the following dose reduction techniques: Automated exposure control, adjustment of the mA and/or kV according to patient size, or use of iterative reconstruction technique. PROCEDURE INTERPRETED AT [facility] DEPARTMENT OF RADIOLOGY Final Report Signed by: Dr. Jeniffer Sneed
--- NOTE | 2017-03-07 11:51 | EKG Report ---
Stationary ECG Study [facility] Test Date: 03/04/2017 11:04:39 AM Pat Name: KODY PACHECO Department: Room: 517 Gender: M Store Warehouse Associate: : 1965 Requested by: Isis Weber Order Number: [id number] Reading MD: FABIANA DURÁN Intervals [place] Rate: 109 P: 77 [place]: 169 QRS: 16 QRSD: 92 T: 63 QT: 339 QTc: 403 Interpretive Statements SINUS TACHYCARDIA NONSPECIFIC T-WAVE ABNORMALITY ABNORMAL RHYTHM ECG Electronically Signed On 03-07-17 12:13:52 CDT by FABIANA DURÁN [id number]
[2017-03-07] MEDS ORDERED: MAGNESIUM SULF RIDER 2 GM in PREMIX 1 EACH IV ONE (15:44)
--- NOTE | 2017-03-07 17:32 | Gastrointestinal Progress Note ---
Assessment and Plan (1) Upper gastrointestinal hemorrhage Status: Acute Assessment and plan: The patient is having a scant hematemesis with his nausea and vomiting which may be related to underlying gastroparesis versus gastritis versus gastroenteritis. His previously been scoped and not found to have any varices. Liver biopsy shows early cirrhosis and the patient does not typically have low platelet count, the amount of alcohol taken recently is only described as one can every other day but the patient may be minimizing about his recent alcohol intake. We will perform upper endoscopy given the drop in his hematocrit from 36.7% down to 28% at this time and see if we can distinguish a Rosa Maria-Velasquez tear versus esophagitis versus gastritis or other bleeding source. The last upper endoscopy done in June 2016 demonstrated gastroparesis. Patient was advised of risks of the upper endoscopy which include but are not limited to: Bleeding, infection, perforation, cardiac and pulmonary compromise. 03/05/17--the patient's drop in hematocrit proved to be secondary to to small ulcers noted in the gastric antrum, these were not bleeding but look like the source of the bleed. There is mild gastritis surrounding this area, there was no gross evidence of a Rosa Maria-Velasquez tear. The patient did end up having gastroparesis likely participating in the nausea/vomiting. Hematocrit stable at 27.1 percent we will watch and see how he does with equilibration and he is not actively bleeding in the stomach now. There were no gross evidence of varices on today's exam. 03/06/17--Again the patient is noted to be somewhat agitated this morning but does not appear to have any further bleeding with a hematocrit of 30.7%. The nurse observes that he may be going into early DTs and is likely about to check out AMA. I have written him some prescriptions for Protonix twice daily. He needs to follow-up for repeat upper endoscopy in 8 weeks. Biopsies are pending. Unless he plan to keep him to observe him for the delirium tremens he can be discharged today. His liver function tests speak to ongoing alcohol use. 03/07/17--biopsies show no Helicobacter pylori, continue treatment with Protonix 40 mg twice daily. Hematocrit is 31.5% Current Visit: Yes (2) Acute posthemorrhagic anemia Status: Acute Assessment and plan: As noted above. I have discontinued the propranolol as this was being used to treat varices that are not present. 03/06/17--Patient was not noted to be bleeding yesterday from the 2 ulcers in the stomach, alcoholic gastritis noted. No portal hypertensive gastropathy and no varices were observed. 03/07/17--patient's hematocrit is stable at this point--31.5% from a GI standpoint once he finishes the delirium tremens he could likely be discharged. I think his alcoholic recidivism rate will be very high. His brother admits he has no control over this, unfortunately. Current Visit: Yes (3) Alcoholic cirrhosis of liver with ascites Status: Acute Assessment and plan: Patient has been demonstrated to have early cirrhosis on liver biopsy. His bilirubin is certainly up from 0.8 at baseline when taken back on 01/17/17 now up to 3.10 level. This may be associated with dehydration from the 3 days of vomiting he has had, will hydrate aggressively tonight and proceed with upper endoscopy tomorrow, I suspect the liver function tests will start to improve markedly over the next 48-72 hours. 03/05/17--The patient's laboratories seem to indicate an element of hemochromatosis. I will have to look over his old biopsy results. See if there was iron staining done, we may need to rebiopsy and get a dry iron weight versus check of genetic testing for hemochromatosis alleles. 03/06/17--We may consider liver re-biopsy at some future point in time. 03/07/17--We Will recheck the patient's liver function tests when he comes back into the office, hopefully in 6 weeks to 8 weeks. If we have to rebiopsy the liver would consider getting dedicated iron studies for dry weight with next specimen Current Visit: Yes (4) Nausea and vomiting Status: Acute Assessment and plan: Again this may be secondary to a gastroenteritis but we should be able to tell more one-way perform upper endoscopy tomorrow. I suspect this patient may have early dehydration although the creatinine does not point towards this as much as the hypokalemia does. 03/05/17--The patient does have gastric ulcers in combination with gastroparesis. We will start treatment with Reglan IV to see if this helps out with his ability to tolerate p.o. and course treat him with Protonix twice daily by IV as well. See if he can tolerate some clear liquids today. 03/06/17--Patient will need some Reglan and I will write him a prescription for this as well. This should help with his nausea and vomiting. Current Visit: Yes Gastroenterology - PN: Subj Interval history: Patient went to fairly florid DTs but appears to be improved with his brother Ray at his bedside. Still having some epigastric pain from the ulcers, liver function tests slightly more elevated. Exam (Progress Note) - Constitutional Vitals: Period Temp Pulse Resp BP Sys/Stein Pulse Ox Last 24 Hr 97.8 F-99.2 F 75-105 16-20 85-153/55-91 94-100 General appearance: mild distress - Eye Eye exam: Present: EOMI Pupils: Present: TRENT - Respiratory Respiratory exam: Present: clear to auscultation bilaterally - Cardiovascular Cardiovascular exam: Present: regular rate and rhythm - GI/Abdominal GI/Abdominal exam: Present: tenderness (Epigastric tenderness, mild), soft. Absent: distended, guarding, rebound - Extremities Exam Extremities exam: Absent: edema - Neurological Exam Neurological exam: Present: alert, altered (Somewhat somnolent presumably with anti-DT medication) - Psychiatric Psychiatric exam: Present: other (Somnolent but arousable and can answer questions) - Skin Skin exam: Present: warm Results - Labs CBC & BMP: 03/07/17 06:49 03/07/17 06:49
[2017-03-07] MEDS: THIAMINE INJ 100 MG, FOLIC ACID INJ 1 MG, MAGNESIUM SULF INJ 2 GM, MULTIVITAMIN INJ 10 ... IV SCH (18:49)
[2017-03-08] MEDS: SODIUM CHLORIDE 0.9% 1,000 ML IV SCH ×4 (00:57→19:58)
--- NOTE | 2017-03-08 06:37 | Gastrointestinal Progress Note ---
Assessment and Plan (1) Upper gastrointestinal hemorrhage Status: Acute Assessment and plan: The patient is having a scant hematemesis with his nausea and vomiting which may be related to underlying gastroparesis versus gastritis versus gastroenteritis. His previously been scoped and not found to have any varices. Liver biopsy shows early cirrhosis and the patient does not typically have low platelet count, the amount of alcohol taken recently is only described as one can every other day but the patient may be minimizing about his recent alcohol intake. We will perform upper endoscopy given the drop in his hematocrit from 36.7% down to 28% at this time and see if we can distinguish a Rosa Maria-Velasquez tear versus esophagitis versus gastritis or other bleeding source. The last upper endoscopy done in June 2016 demonstrated gastroparesis. Patient was advised of risks of the upper endoscopy which include but are not limited to: Bleeding, infection, perforation, cardiac and pulmonary compromise. 03/05/17--the patient's drop in hematocrit proved to be secondary to to small ulcers noted in the gastric antrum, these were not bleeding but look like the source of the bleed. There is mild gastritis surrounding this area, there was no gross evidence of a Rosa Maria-Velasquez tear. The patient did end up having gastroparesis likely participating in the nausea/vomiting. Hematocrit stable at 27.1 percent we will watch and see how he does with equilibration and he is not actively bleeding in the stomach now. There were no gross evidence of varices on today's exam. 03/06/17--Again the patient is noted to be somewhat agitated this morning but does not appear to have any further bleeding with a hematocrit of 30.7%. The nurse observes that he may be going into early DTs and is likely about to check out AMA. I have written him some prescriptions for Protonix twice daily. He needs to follow-up for repeat upper endoscopy in 8 weeks. Biopsies are pending. Unless he plan to keep him to observe him for the delirium tremens he can be discharged today. His liver function tests speak to ongoing alcohol use. 03/07/17--biopsies show no Helicobacter pylori, continue treatment with Protonix 40 mg twice daily. Hematocrit is 31.5% 03/08/17--continue Protonix as per previous prescription written 40 mg twice daily, the patient will need repeat upper endoscopy in 8 weeks. As the patient is doing well at this point will sign off again. Current Visit: Yes (2) Acute posthemorrhagic anemia Status: Acute Assessment and plan: As noted above. I have discontinued the propranolol as this was being used to treat varices that are not present. 03/06/17--Patient was not noted to be bleeding yesterday from the 2 ulcers in the stomach, alcoholic gastritis noted. No portal hypertensive gastropathy and no varices were observed. 03/07/17--patient's hematocrit is stable at this point--31.5% from a GI standpoint once he finishes the delirium tremens he could likely be discharged. I think his alcoholic recidivism rate will be very high. His brother admits he has no control over this, unfortunately. 03/08/17--patient appears to be out of his delirium tremens, again he was lectured about his mortality with continued drinking. Prescription for the pantoprazole twice daily has been written, repeat upper endoscopy in 8 weeks. Current Visit: Yes (3) Alcoholic cirrhosis of liver with ascites Status: Acute Assessment and plan: Patient has been demonstrated to have early cirrhosis on liver biopsy. His bilirubin is certainly up from 0.8 at baseline when taken back on 01/17/17 now up to 3.10 level. This may be associated with dehydration from the 3 days of vomiting he has had, will hydrate aggressively tonight and proceed with upper endoscopy tomorrow, I suspect the liver function tests will start to improve markedly over the next 48-72 hours. 03/05/17--The patient's laboratories seem to indicate an element of hemochromatosis. I will have to look over his old biopsy results. See if there was iron staining done, we may need to rebiopsy and get a dry iron weight versus check of genetic testing for hemochromatosis alleles. 03/06/17--We may consider liver re-biopsy at some future point in time. 03/07/17--We Will recheck the patient's liver function tests when he comes back into the office, hopefully in 6 weeks to 8 weeks. If we have to rebiopsy the liver would consider getting dedicated iron studies for dry weight with next specimen. 03/08/17--We Will recheck patient's liver function tests in 8 weeks when he returns for upper endoscopy, okay to discharge from my standpoint with the understanding that he needs to discontinue alcohol entirely and should be on a low-sodium diet and to continue his previous diuretic/lactulose dosing. Current Visit: Yes (4) Nausea and vomiting Status: Acute Assessment and plan: Again this may be secondary to a gastroenteritis but we should be able to tell more one-way perform upper endoscopy tomorrow. I suspect this patient may have early dehydration although the creatinine does not point towards this as much as the hypokalemia does. 03/05/17--The patient does have gastric ulcers in combination with gastroparesis. We will start treatment with Reglan IV to see if this helps out with his ability to tolerate p.o. and course treat him with Protonix twice daily by IV as well. See if he can tolerate some clear liquids today. 03/06/17--Patient will need some Reglan and I will write him a prescription for this as well. This should help with his nausea and vomiting. 03/08/17--See previous prescriptions. Current Visit: Yes Gastroenterology - PN: Subj Interval history: Patient seems lucid again--he is not agitated and lying calmly in his bed, we again discussed the fact that he had developed a delirium tremens and need to discontinue alcohol entirely at this point. His brother and I had talked yesterday in front of him about alcohol being whiskey wine and beer, all 3. Apparently, this has been a source of confusion. Exam (Progress Note) - Constitutional Vitals: Period Temp Pulse Resp BP Sys/Stein Pulse Ox Last 24 Hr 97.8 F-98.3 F 78-88 16-20 90-113/55-74 95-100 General appearance: no acute distress - Head Head exam: Present: normocephalic - Eye Eye exam: Present: EOMI Pupils: Present: TRENT - Respiratory Respiratory exam: Present: clear to auscultation bilaterally - Cardiovascular Cardiovascular exam: Present: regular rate and rhythm - GI/Abdominal GI/Abdominal exam: Present: normal bowel sounds, tenderness (In the epigastric region and right upper quadrant), soft. Absent: ascites, distended, rebound - Neurological Exam Neurological exam: Present: alert, oriented X3, CN II-XII intact. Absent: motor sensory deficit - Psychiatric Psychiatric exam: Present: normal affect, normal mood - Skin Skin exam: Present: warm Results - Labs CBC & BMP: 03/07/17 06:49 03/07/17 06:49
[2017-03-08 06:45] LABS: Basophils # 0.1 10*3/uL (0.0-0.2); Basophils % 0.7 % (0.0-0.8); Eosinophils # 0.1 10*3/uL (0.0-0.87); Eosinophils % 1.3 % (0.00-10.9); Hematocrit 27.8 VOL% (42.0-52.0); Hemoglobin 10.5 GM/DL (14.0-18.0); Immature Granulocytes % 0.8 %; Immature Granulocytes Absolute 0.06 #; Lymphocytes # 1.5 10*3/uL (1.4-4.0); Lymphocytes % 20.5 % (21.2-54.2); Mean Corpuscular HGB Conc 37.8 GM/DL (32-36); Mean Corpuscular Hemoglobin 36 PG (27-34); Mean Corpuscular Volume 96.2 FL (87-102); Mean Platelet Volume 10.9 FL (9.6-12.0); Monocytes # 0.9 10*3/uL (0.11-0.8); Monocytes % 12.5 % (1.7-12.7); NRBC # 0.02 10*3/uL; Neutrophils # 4.8 10*3/uL (1.4-7.4); Neutrophils % 64.2 % (38.7-73.9); Platelet Count 90 T/CUMM (130-400); Red Blood Count 2.89 MC/CUMM (3.8-5.5); Red Cell Distribution Width 13.4 % (9.3-17.3); White Blood Count 7.5 T/CUMM (4-12)
[2017-03-08 06:54] LABS: INR 1.4
[2017-03-08 07:16] LABS: Bilirubin,Total 2.1 MG/DL (0.2-1.0); Calcium 7.7 MG/DL (8.5-10.1); Osmolality,Calculated 270.8 MOS/KG (273-304); Potassium 3.6 MMOL/L (3.5-5.1); Total Protein 6.1 G/DL (6.4-8.3)
[2017-03-08 07:32] LABS: Giant Platelets Few; Hypochromasia 1+; Platelet Estimate Decreased
[2017-03-08] MEDS: SPIRONOLACTONE 100 MG TABLET PO SCH (08:35)
[2017-03-08] MEDS: PANTOPRAZOLE 40 MG VIAL IV SCH ×2 (08:36→20:06)
--- NOTE | 2017-03-08 11:40 | Hospitalist Progress Note ---
Assessment and Plan (1) Delirium tremens Status: Acute Assessment and plan: He had alcohol withdrawal syndrome with delirium tremens which has resolved. Plan continue with Lorazepam and ziprasidone as needed, banana bag. Current Visit: Yes (2) Gastric ulcer Status: Acute Assessment and plan: He was found at EGD to have small antral gastric ulcers. Gastroenterology presumes that these were the site of his upper gastrointestinal bleed, although there was no active bleeding noted at the time of the endoscopy. H/H is stable. H. pylori was negative Plan Continue with pantoprazole as recommended by gastroenterology. Current Visit: No (3) Cirrhosis Status: Chronic Assessment and plan: His previously known history of alcoholic cirrhosis demonstrated by liver biopsy. Continue to follow liver enzymes.GI thinks he may consider liver re- biopsy at some future point in time. Avoid hepatotoxics Current Visit: Yes Qualifiers: Hepatic cirrhosis type: alcoholic cirrhosis (4) Upper gastrointestinal hemorrhage Status: Acute Assessment and plan: H/H is stable.He does not appear to be experiencing any further gastrointestinal bleeding. Current Visit: Yes (5) Acute encephalopathy Status: Acute Assessment and plan: most likely due to delirium tremens to r/o hepatic encephalopathy.CT head was negative for an acute change, Patient is more alert and no longer confused this am. Plan continue current care Possible dc in am Current Visit: Yes (6) Thrombocytopenia Status: Acute Assessment and plan: due to alcoholic cirrhosis. Plan Continue to watch Current Visit: Yes (7) Hypokalemia Status: Acute Assessment and plan: repleted Current Visit: Yes Hospitalist: Subjective Interval history: Patient seen this am, walking on the corridor doing his PT session. He is more alert and oriented x3. CT head showed no acute changes.His out of restraints. Exam - Constitutional Vitals: Period Temp Pulse Resp BP Sys/Stein Pulse Ox Last 24 Hr 97.6 F-98.3 F 78-88 16-20 90-118/55-74 95-99 General appearance: no acute distress - Head Head exam: Present: normal inspection - Eye Eye exam: Present: EOMI - Respiratory Respiratory exam: Present: clear to auscultation bilaterally - Cardiovascular Cardiovascular exam: Present: regular rate and rhythm - GI/Abdominal GI/Abdominal exam: Present: normal bowel sounds - Extremities Exam Extremities exam: Present: normal inspection - Neurological Exam Neurological exam: Present: alert, oriented X3 Results - Labs CBC & BMP: 03/08/17 06:25 03/08/17 06:25 Lab Results: I have reviewed the past 24 hour labs
[2017-03-08] MEDS: THIAMINE INJ 100 MG, FOLIC ACID INJ 1 MG, MAGNESIUM SULF INJ 2 GM, MULTIVITAMIN INJ 10 ... IV SCH (17:34)
[2017-03-09 06:47] LABS: Basophils # 0.1 10*3/uL (0.0-0.2); Basophils % 0.7 % (0.0-0.8); Eosinophils # 0.1 10*3/uL (0.0-0.87); Eosinophils % 1.4 % (0.00-10.9); Hematocrit 28.7 VOL% (42.0-52.0); Hemoglobin 10.5 GM/DL (14.0-18.0); Immature Granulocytes % 0.6 %; Immature Granulocytes Absolute 0.04 #; Lymphocytes # 1.7 10*3/uL (1.4-4.0); Lymphocytes % 24.4 % (21.2-54.2); Mean Corpuscular HGB Conc 36.6 GM/DL (32-36); Mean Corpuscular Hemoglobin 36 PG (27-34); Monocytes # 0.8 10*3/uL (0.11-0.8); NRBC # 0.02 10*3/uL; Neutrophils # 4.4 10*3/uL (1.4-7.4); Neutrophils % 61.9 % (38.7-73.9); Platelet Count 100 T/CUMM (130-400); Red Blood Count 2.93 MC/CUMM (3.8-5.5); Red Cell Distribution Width 14.6 % (9.3-17.3); White Blood Count 7.1 T/CUMM (4-12)
[2017-03-09 07:13] LABS: Calcium 8.2 MG/DL (8.5-10.1); Magnesium 1.6 MG/DL (1.8-2.4); Osmolality,Calculated 270.7 MOS/KG (273-304)
[2017-03-09] MEDS: SODIUM CHLORIDE 0.9% 1,000 ML IV SCH ×2 (07:53→10:00)
[2017-03-09 08:03] VITALS: BP 146/84
[2017-03-09] MEDS: PANTOPRAZOLE 40 MG VIAL IV SCH (08:43)
[2017-03-09] MEDS: SPIRONOLACTONE 100 MG TABLET PO SCH (08:43)
--- NOTE | 2017-03-09 12:40 | Discharge Summary ---
<Fouzia Cohen - Last Filed: 03/09/17 12:27> Hospital Course - Hospital Course Hospital Course: This is a chronically ill 52-year-old male that presented to the [facility]Urgent[facility] at [facility] on the morning of March 04, 2017 for the evaluation of nausea, vomiting, and diarrhea. The patient reports a medical history of chronic alcohol abuse, peptic ulcer disease, seizures, and liver cirrhosis. The patient reports a surgical history of ultrasound-guided liver biopsy in January of this year. The patient reported the onset of symptoms 1 week prior to presentation. He reported that he had been experiencing multiple episodes of bloody emesis daily. In addition, the patient reported that he had been experiencing profound weakness and vertigo. He describes the emesis as "not bright red but not black in color". As his symptoms persisted, he became alarmed prompting him to present to the Non-Urgent [facility] at [facility] for further evaluation. The patient was immediately assessed at the time of presentation. The patient was noted to have heme positive stools upon digital examination. Labs were obtained which were significant for hemoglobin of 11.0, hematocrit 29.3, platelet count 100, potassium at 3.2, and glucose of 54. The patient was subsequently admitted to the hospitalist service for continuation of care. A gastroenterology consultation was requested. The patient was gently rehydrated and protein pump inhibitors were initiated. The patient was seen and evaluated by gastroenterology and recommendations were given. On March 05, 2017, the patient underwent esophagogastroduodenoscopy with cold biopsy for pathology under the direction of Dr. Dejesus; which was significant for the presence of 2 gastric ulcers, moderate gastroparesis, and mild gastritis. Incidentally, a 2 cm hiatal hernia was discovered. The patient's hemoglobin and hematocrit remained stable throughout the clinical encounter and he required no transfusions of blood products. Protein pump inhibitors were continued and dietary restrictions were given. The patient's condition gradually improved. The patient's condition is stable. He is not experienced any significant overnight events. The patient's hemoglobin and hematocrit is noted at 10.5 and 28.7 today. Today, we feel that the patient is indeed appropriate for discharge to follow-up with his primary care physician and educational institution curator Dr. Dejesus as indicated. In addition, patient has been instructed to follow-up with Dr. Dejesus's office in 1-2 weeks by phone at . The patient should adhere to anti-gastroesophageal reflux measures including avoidance of carbonated and ascitic beverages, avoid eating within 2 hours of bedtime, avoidance of tight fitting clothes, and elevation of the front bedpost 6 inches prior to sleeping. The patient should follow-up with Dr. Dejesus for a repeat of the esophagogastroduodenoscopy in 2 months to reassess the gastric ulcers. Discharge Plan - Discharge Data Disposition: Home Health Service - Discharge Medications New Folic Acid Tab 1 mg PO DAILY #30 tablet Multivitamin (Ocuvite) [Ocuvite] 1 tablet PO DAILY #30 tablet Thiamine Tab [Vitamin B1 Tab] 100 mg PO DAILY #30 tablet Lactulose Liquid [Chronulac] 10 gm PO DAILY #7 udcup Pantoprazole Tab [Protonix Tab] 40 mg PO BID #60 tablet oxyCODONE IR [Roxicodone] 5 mg PO Q4H PRN #20 tablet PRN Reason: Pain Severe (8-10) Continue Spironolactone 100 mg PO DAILY Discontinued Potassium Chloride 20 meq PO DAILY - Follow Up or Referral - Forms/Instructions Exam - Constitutional Vitals: Period Temp Pulse Resp BP Sys/Stein Pulse Ox Last 24 Hr 98.0 F-99.0 F 73-89 18-20 104-146/59-84 98-100 Discharge Results Labs on day of discharge: Labs from last 24 hours 03/09/17 03/09/17 06:37 06:37 WBC 7.1 RBC 2.93 L Hgb 10.5 L Hct 28.7 L MCV 98.0 MCH 36 H MCHC 36.6 H RDW 14.6 Plt Count 100 L MPV 11.0 Neut % (Auto) 61.9 Lymph % (Auto) 24.4 [place] % (Auto) 11.0 Eos % (Auto) 1.4 Baso % (Auto) 0.7 Neut # (Auto) 4.4 Lymph # (Auto) 1.7 [place] # (Auto) 0.8 Eos # (Auto) 0.1 Baso # (Auto) 0.1 Immature Gran % 0.6 Nucleated RBC % 0.3 Immature Gran # 0.04 Nucleated RBCs # 0.02 Immature Plt Fraction 0.0 Sodium 138 Potassium 5.0 Chloride 108 H Carbon Dioxide 25 Anion Gap 10.0 BUN 5 L Creatinine 0.60 L GFR Calculation 133 BUN/Creatinine Ratio 8.00 Glucose 83 Calculated Osmolality 270.7 L Calcium 8.2 L Magnesium 1.6 L DS: Provider Date of admission: 03/04/17 12:28 Primary care physician: . No PCP Attending physician on admission: Nick Sarah MD Consults: 03/04/17 16:54 Consult to Anesthesiology [CONS] Routine Consulting Provider: Reason for Anesthesiology: Pre-op Clearance 03/08/17 09:18 Consult to Physical Therapy [CONS] Routine Reason for Physical Therapy: Weakness Start Therapy: Today 03/09/17 08:04 Consult to Case Mgmt/Social Srvs [CONS] Routine Reason for Case Mgmt/Social Srvs: Home Health Consult Comment: with home PT Discharging clinician: Fouzia Cohen CNP <Kathleen Dunham - Last Filed: 03/09/17 13:02> Hospital Course - Time spent with patient Time with patient DS: Greater than 30 minutes (Time spent>35mins) Diagnosis - Discharge Diagnosis (1) Delirium tremens Status: Acute (2) Gastric ulcer Status: Acute (3) Cirrhosis Status: Chronic (4) Upper gastrointestinal hemorrhage Status: Acute (5) Acute encephalopathy Status: Acute (6) Thrombocytopenia Status: Acute (7) Hypokalemia Status: Acute Discharge Plan - Discharge Data Condition at Discharge: Stable Discharge Diet: advance to your usual diet Activity: resume usual activities as tolerated - Forms/Instructions Additional Discharge Instructions: Follow with PCP in 1week, follow with GI as scheduled Exam - Constitutional General appearance: no acute distress - Head Head exam: Present: normal inspection - Respiratory Respiratory exam: Present: clear to auscultation bilaterally - Cardiovascular Cardiovascular exam: Present: regular rate and rhythm - GI/Abdominal GI/Abdominal exam: Present: normal bowel sounds - Extremities Exam Extremities exam: Present: normal inspection - Neurological Exam Neurological exam: Present: alert, oriented X3
== END 2017-03-09 14:00 | disposition home health service (06) | DRG 241 ==
LOC: N.ED 09:25 → N.EDINP 12:28 → SUATTDRO 12:28 → N.5E 14:35
PROVIDERS: ADMIT Internal Medicine Infectious Disease; ATTEND Internal Medicine

== ENCOUNTER 2018-01-02 20:54 | Inpatient (IN) ==
[2018-01-02] MEDS ORDERED: ONDANSETRON 4 MG/2 ML VIAL IV STA (21:17)
[2018-01-02] MEDS ORDERED: PANTOPRAZOLE 40 MG VIAL IV STA (21:17)
[2018-01-02] MEDS ORDERED: METOCLOPRAMIDE 10 MG/2 ML VIAL IV STA (21:17)
[2018-01-02] MEDS ORDERED: SODIUM CHLORIDE 0.9% 1,000 ML IV STA (21:17)
[2018-01-02 22:00] LABS: Basophils # 0.1 10*3/uL (0.0-0.2); Basophils % 0.6 % (0.0-0.8); Eosinophils # 0.2 10*3/uL (0.0-0.87); Eosinophils % 1.8 % (0.00-10.9); Hematocrit 23.6 VOL% (42.0-52.0); Hemoglobin 8.6 GM/DL (14.0-18.0); Immature Granulocytes % 0.7 %; Immature Granulocytes Absolute 0.06 #; Lymphocytes # 1.6 10*3/uL (1.4-4.0); Lymphocytes % 17.3 % (21.2-54.2); Mean Corpuscular HGB Conc 36.4 GM/DL (32-36); Mean Corpuscular Hemoglobin 36 PG (27-34); Mean Corpuscular Volume 99.2 FL (87-102); Mean Platelet Volume 10.6 FL (9.6-12.0); Monocytes # 0.8 10*3/uL (0.11-0.8); Monocytes % 9.2 % (1.7-12.7); Neutrophils # 6.4 10*3/uL (1.4-7.4); Neutrophils % 70.4 % (38.7-73.9); Platelet Count 109 T/CUMM (130-400); Red Blood Count 2.38 MC/CUMM (3.8-5.5); Red Cell Distribution Width 13.6 % (9.3-17.3); White Blood Count 9.1 T/CUMM (4-12)
[2018-01-02 22:12] LABS: INR 1.4; PT Patient Result 14.5 SECS; Partial Thromboplastin Time 36.4 SECS (0-40)
[2018-01-02 22:20] LABS: Alanine Aminotransferase 21 U/L (16-61); Albumin 1.8 G/DL (3.4-5.0); Alkaline Phosphatase 181 U/L (45-117); Amylase 140 U/L (25-115); Aspartate Amino Transferase 95 U/L (0-37); Blood Urea Nitrogen 4 MG/DL (7-18); Calcium 7.6 MG/DL (8.5-10.1); Glucose 112 MG/DL (74-106); Osmolality,Calculated 265.2 MOS/KG (273-304); Sodium 134 MMOL/L (136-145); Total Protein 8.7 G/DL (6.4-8.3)
[2018-01-03] MEDS ORDERED: PANTOPRAZOLE INJ 80 MG in SODIUM CHLORIDE 0.9% 100 ML IV ONE (02:00)
[2018-01-03] MEDS: SODIUM CHLORIDE 0.9% 1,000 ML IV SCH ×2 (02:12→10:18)
[2018-01-03 05:37] LABS: Basophils % 0.4 % (0.0-0.8); Eosinophils # 0.1 10*3/uL (0.0-0.87); Eosinophils % 1.1 % (0.00-10.9); Hematocrit 21.9 VOL% (42.0-52.0); Hemoglobin 8.3 GM/DL (14.0-18.0); Immature Granulocytes % 0.6 %; Immature Granulocytes Absolute 0.05 #; Lymphocytes # 1.3 10*3/uL (1.4-4.0); Lymphocytes % 15.3 % (21.2-54.2); Mean Corpuscular HGB Conc 37.9 GM/DL (32-36); Mean Corpuscular Hemoglobin 36 PG (27-34); Mean Corpuscular Volume 96.1 FL (87-102); Mean Platelet Volume 11.1 FL (9.6-12.0); Monocytes # 0.8 10*3/uL (0.11-0.8); Monocytes % 9.2 % (1.7-12.7); Neutrophils # 6.1 10*3/uL (1.4-7.4); Neutrophils % 73.4 % (38.7-73.9); Platelet Count 100 T/CUMM (130-400); Red Blood Count 2.28 MC/CUMM (3.8-5.5); Red Cell Distribution Width 13.9 % (9.3-17.3); White Blood Count 8.4 T/CUMM (4-12)
[2018-01-03 06:18] LABS: Calcium 7.5 MG/DL (8.5-10.1); Osmolality,Calculated 270.7 MOS/KG (273-304)
[2018-01-03 06:26] LABS: Hypochromasia 1+; Platelet Estimate Decreased
[2018-01-03 06:27] LABS: Target Cells Few
[2018-01-03] MEDS ORDERED: FUROSEMIDE 20 MG/2 ML VIAL IV PRN (07:52)
[2018-01-03] MEDS ORDERED: SODIUM CHLORIDE 0.9% 1,000 ML IV PRN (07:52)
[2018-01-03] MEDS: FUROSEMIDE 40 MG TABLET PO SCH (10:06)
[2018-01-03] MEDS: FOLIC ACID 1 MG TABLET PO SCH (10:06)
[2018-01-03] MEDS: MULTIVITAMIN (CENTRUM) TABLET PO SCH (10:06)
[2018-01-03] MEDS: POTASSIUM CHLORIDE 20 MEQ PACK PO SCH (10:07)
[2018-01-03] MEDS: THIAMINE 200 MG/2 ML VIAL IV SCH (10:10)
[2018-01-03] MEDS: PANTOPRAZOLE 40 MG VIAL IV SCH ×2 (10:10→20:58)
[2018-01-03] MEDS ORDERED: POTASSIUM CHLORIDE 20 MEQ TABLET PO ONE (12:07)
[2018-01-03] MEDS ORDERED: MAGNESIUM SULF RIDER 2 GM in PREMIX 1 EACH IV PRN (12:26)
[2018-01-03] MEDS: LORazepam 1 MG TABLET PO PRN ×3 (12:35→21:06)
[2018-01-03] MEDS: chlordiazePOXIDE 25 MG CAPSULE PO SCH ×2 (16:01→21:01)
[2018-01-04] MEDS: SODIUM CHLORIDE 0.9% 1,000 ML IV SCH ×3 (01:50→15:40)
[2018-01-04] MEDS: LORazepam 1 MG TABLET PO PRN (02:08)
[2018-01-04] MEDS: chlordiazePOXIDE 25 MG CAPSULE PO SCH ×4 (06:25→21:30)
[2018-01-04] MEDS: MULTIVITAMIN (CENTRUM) TABLET PO SCH (09:31)
[2018-01-04] MEDS: FOLIC ACID 1 MG TABLET PO SCH (09:31)
[2018-01-04] MEDS: FUROSEMIDE 40 MG TABLET PO SCH (09:31)
[2018-01-04] MEDS: PANTOPRAZOLE 40 MG VIAL IV SCH ×2 (09:34→20:32)
[2018-01-04] MEDS: THIAMINE 200 MG/2 ML VIAL IV SCH (09:36)
[2018-01-04] MEDS: POTASSIUM CHLORIDE 20 MEQ PACK PO SCH (09:51)
[2018-01-04 10:50] LABS: Hematocrit 33.4 VOL% (42.0-52.0)
[2018-01-04 10:51] LABS: Hemoglobin 11.9 GM/DL (14.0-18.0)
[2018-01-04 11:09] LABS: Potassium 3.4 MMOL/L (3.5-5.1)
[2018-01-05] MEDS: chlordiazePOXIDE 25 MG CAPSULE PO SCH ×4 (04:41→21:40)
[2018-01-05 06:41] LABS: Hemoglobin 11.2 GM/DL (14.0-18.0)
[2018-01-05 06:51] LABS: Basophils # 0.1 10*3/uL (0.0-0.2); Eosinophils # 0.3 10*3/uL (0.0-0.87); Eosinophils % 3.2 % (0.00-10.9); Hematocrit 30.9 VOL% (42.0-52.0); Immature Granulocytes % 0.6 %; Immature Granulocytes Absolute 0.05 #; Lymphocytes # 1.2 10*3/uL (1.4-4.0); Lymphocytes % 14.5 % (21.2-54.2); Mean Corpuscular HGB Conc 36.2 GM/DL (32-36); Mean Corpuscular Hemoglobin 35 PG (27-34); Mean Corpuscular Volume 95.1 FL (87-102); Mean Platelet Volume 10.2 FL (9.6-12.0); Monocytes # 0.6 10*3/uL (0.11-0.8); Monocytes % 7.8 % (1.7-12.7); Neutrophils # 5.9 10*3/uL (1.4-7.4); Neutrophils % 72.9 % (38.7-73.9); Red Cell Distribution Width 15.6 % (9.3-17.3); White Blood Count 8.1 T/CUMM (4-12)
[2018-01-05 06:54] LABS: Red Blood Count 3.25 MC/CUMM (3.8-5.5)
[2018-01-05 06:55] LABS: Platelet Count 131 T/CUMM (130-400)
[2018-01-05 07:06] LABS: Calcium 7.8 MG/DL (8.5-10.1); Osmolality,Calculated 265.1 MOS/KG (273-304); Potassium 3.4 MMOL/L (3.5-5.1)
[2018-01-05] MEDS ORDERED: TUBERCULIN SKIN TEST 0.1 ML SYRINGE INTRADERM ONE (08:53)
[2018-01-05] MEDS: POTASSIUM CHLORIDE 20 MEQ PACK PO SCH (09:19)
[2018-01-05] MEDS: FUROSEMIDE 40 MG TABLET PO SCH (09:20)
[2018-01-05] MEDS: FOLIC ACID 1 MG TABLET PO SCH (09:20)
[2018-01-05] MEDS: MULTIVITAMIN (CENTRUM) TABLET PO SCH (09:20)
[2018-01-05] MEDS: PANTOPRAZOLE 40 MG VIAL IV SCH ×2 (09:22→21:40)
[2018-01-05] MEDS: THIAMINE 200 MG/2 ML VIAL IV SCH (09:24)
[2018-01-05] MEDS ORDERED: SODIUM CHLORIDE 0.9% 250 ML IV ONE (15:33)
[2018-01-06] MEDS: chlordiazePOXIDE 25 MG CAPSULE PO SCH ×4 (04:44→21:09)
[2018-01-06 07:54] LABS: Basophils # 0.1 10*3/uL (0.0-0.2); Basophils % 1.1 % (0.0-0.8); Eosinophils # 0.2 10*3/uL (0.0-0.87); Eosinophils % 2.8 % (0.00-10.9); Hematocrit 30.8 VOL% (42.0-52.0); Immature Granulocytes Absolute 0.08 #; Lymphocytes # 0.9 10*3/uL (1.4-4.0); Lymphocytes % 11.1 % (21.2-54.2); Mean Corpuscular HGB Conc 35.7 GM/DL (32-36); Mean Corpuscular Hemoglobin 35 PG (27-34); Mean Corpuscular Volume 96.6 FL (87-102); Mean Platelet Volume 10.7 FL (9.6-12.0); Monocytes # 0.9 10*3/uL (0.11-0.8); Monocytes % 11.5 % (1.7-12.7); Neutrophils # 5.7 10*3/uL (1.4-7.4); Neutrophils % 72.5 % (38.7-73.9); Platelet Count 123 T/CUMM (130-400); Red Blood Count 3.19 MC/CUMM (3.8-5.5); Red Cell Distribution Width 15.9 % (9.3-17.3); White Blood Count 7.9 T/CUMM (4-12)
[2018-01-06] MEDS: THIAMINE 200 MG/2 ML VIAL IV SCH (10:04)
[2018-01-06] MEDS: MULTIVITAMIN (CENTRUM) TABLET PO SCH (10:04)
[2018-01-06] MEDS: PANTOPRAZOLE 40 MG VIAL IV SCH ×2 (10:04→21:08)
[2018-01-06] MEDS: FOLIC ACID 1 MG TABLET PO SCH (10:05)
[2018-01-06] MEDS: FUROSEMIDE 40 MG TABLET PO SCH (10:05)
[2018-01-06] MEDS ORDERED: SODIUM CHLORIDE 0.9% 1,000 ML IV PRN (10:06)
[2018-01-06 15:52] LABS: HIV Antigen/Antibody Result Nonreactive (Nonreactive)
[2018-01-07 04:03] VITALS: BP 102/67
[2018-01-07] MEDS: chlordiazePOXIDE 25 MG CAPSULE PO SCH ×2 (04:10→11:55)
[2018-01-07 04:20] LABS: Basophils # 0.1 10*3/uL (0.0-0.2); Eosinophils # 0.3 10*3/uL (0.0-0.87); Eosinophils % 2.9 % (0.00-10.9); Hematocrit 30.6 VOL% (42.0-52.0); Immature Granulocytes Absolute 0.09 #; Lymphocytes # 1.7 10*3/uL (1.4-4.0); Lymphocytes % 18.5 % (21.2-54.2); Mean Corpuscular HGB Conc 35.9 GM/DL (32-36); Mean Corpuscular Hemoglobin 35 PG (27-34); Mean Corpuscular Volume 97.1 FL (87-102); Mean Platelet Volume 10.2 FL (9.6-12.0); Monocytes # 1.4 10*3/uL (0.11-0.8); Monocytes % 16.2 % (1.7-12.7); Neutrophils # 5.4 10*3/uL (1.4-7.4); Neutrophils % 60.4 % (38.7-73.9); Platelet Count 135 T/CUMM (130-400); Red Blood Count 3.15 MC/CUMM (3.8-5.5); Red Cell Distribution Width 15.9 % (9.3-17.3); White Blood Count 8.9 T/CUMM (4-12)
[2018-01-07 04:39] LABS: Calcium 8.1 MG/DL (8.5-10.1); Osmolality,Calculated 273.5 MOS/KG (273-304); Potassium 3.3 MMOL/L (3.5-5.1)
[2018-01-07 04:47] LABS: INR 1.4; PT Patient Result 14.7 SECS
[2018-01-07 05:14] LABS: Band Neutrophils 7 % (0-10); Eosinophils 4 % (0-10); Lymphocytes 13 % (20-55); Metamyelocytes 1 %; Segmented Neutrophils 67 % (50-85); Total Cells Counted 100
[2018-01-07 05:15] LABS: Anisocytosis 1+; Poikilocytosis 1+; Target Cells 2+
[2018-01-07] MEDS ORDERED: PROMETHAZINE 25 MG/1 ML VIAL IM ONE (07:00)
[2018-01-07] MEDS ORDERED: LIDOCAINE 2% 20 ML VIAL RESP TX ONE (07:30)
[2018-01-07] MEDS ORDERED: MIDAZOLAM 2 MG/2 ML VIAL IV ONE (07:30)
[2018-01-07] MEDS ORDERED: LIDOCAINE 1% 20 ML VIAL MISC INJ ONE (07:30)
[2018-01-07] MEDS: MULTIVITAMIN (CENTRUM) TABLET PO SCH (08:25)
[2018-01-07] MEDS: FOLIC ACID 1 MG TABLET PO SCH (08:25)
[2018-01-07] MEDS: LORazepam 1 MG TABLET PO PRN (08:25)
[2018-01-07] MEDS: PANTOPRAZOLE 40 MG VIAL IV SCH (08:25)
[2018-01-07] MEDS: FUROSEMIDE 40 MG TABLET PO SCH (08:25)
[2018-01-07] MEDS: THIAMINE 200 MG/2 ML VIAL IV SCH (08:30)
[2018-01-07] MEDS ORDERED: POTASSIUM CHLORIDE 20 MEQ TABLET PO PRN (10:56)
[2018-01-07] MEDS ORDERED: MAGNESIUM OXIDE 400 MG TABLET PO SCH (11:00)
[2018-01-08 11:07] LABS: TB2 Ag Minus Result -0.01 IU/mL
== END 2018-01-07 13:05 | disposition left against medical advice (07) | DRG 243 ==
LOC: EDBD → EDUNIT# → N.ED 20:54 → SUATTDRO 01-03 00:44 → N.EDINP 01-03 00:44 → N.2E 01-03 01:35 → N.CC 01-05 16:02
PROVIDERS: ADMIT Internal Medicine Infectious Disease; ATTEND Family Medicine

== ENCOUNTER 2018-03-03 21:34 | Inpatient (IN) ==
[2018-03-03] MEDS ORDERED: PANTOPRAZOLE 40 MG VIAL IV STA (21:50)
[2018-03-03] MEDS ORDERED: ONDANSETRON 4 MG/2 ML VIAL IV STA (21:50)
[2018-03-03] MEDS ORDERED: SODIUM CHLORIDE 0.9% 1,000 ML IV STA (21:50)
[2018-03-03 22:29] LABS: Basophils # 0.1 10*3/uL (0.0-0.2); Basophils % 0.4 % (0.0-0.8); Eosinophils % 0.2 % (0.00-10.9); Immature Granulocytes % 1.2 %; Immature Granulocytes Absolute 0.14 #; Lymphocytes # 1.9 10*3/uL (1.4-4.0); Lymphocytes % 16.6 % (21.2-54.2); Mean Corpuscular HGB Conc 35.6 GM/DL (32-36); Mean Corpuscular Hemoglobin 36 PG (27-34); Mean Corpuscular Volume 101.6 FL (87-102); Mean Platelet Volume 11.4 FL (9.6-12.0); Monocytes # 0.7 10*3/uL (0.11-0.8); Monocytes % 6.3 % (1.7-12.7); Neutrophils # 8.8 10*3/uL (1.4-7.4); Neutrophils % 75.3 % (38.7-73.9); Platelet Count 86 T/CUMM (130-400); Red Blood Count 1.88 MC/CUMM (3.8-5.5); Red Cell Distribution Width 14.4 % (9.3-17.3); White Blood Count 11.6 T/CUMM (4-12)
[2018-03-03 22:32] LABS: Hemoglobin 6.8 GM/DL (14.0-18.0)
[2018-03-03 22:33] LABS: Hematocrit 19.1 VOL% (42.0-52.0)
[2018-03-03 22:53] LABS: INR 1.5; PT Patient Result 16.1 SECS
[2018-03-03 22:58] LABS: Alanine Aminotransferase 31 U/L (16-61); Albumin 2.3 G/DL (3.4-5.0); Alkaline Phosphatase 82 U/L (45-117); Ammonia 31 UMOL/L (11-32); Amylase 76 U/L (25-115); Aspartate Amino Transferase 89 U/L (0-37); Blood Urea Nitrogen 35 MG/DL (7-18); Calcium 8.4 MG/DL (8.5-10.1); Glucose 127 MG/DL (74-106); Osmolality,Calculated 286.5 MOS/KG (273-304); Potassium 3.4 MMOL/L (3.5-5.1); Sodium 139 MMOL/L (136-145); Total Protein 6.9 G/DL (6.4-8.3)
[2018-03-03 22:59] LABS: Troponin I Only 0.069 NG/ML (0.00-0.045)
[2018-03-03] MEDS ORDERED: THIAMINE INJ 100 MG, FOLIC ACID INJ 1 MG, MAGNESIUM SULF INJ 2 GM, MULTIVITAMIN INJ 10 ... IV ONE (23:01)
[2018-03-03] MEDS ORDERED: MAGNESIUM SULF RIDER 2 GM in PREMIX 1 EACH IV STA (23:01)
[2018-03-03 23:03] LABS: Polychromasia Few
[2018-03-03 23:03] LABS: Lactic Acid 4.9 MMOL/L (0.4-2.0)
[2018-03-03 23:04] LABS: Platelet Estimate Adequate
[2018-03-03 23:07] LABS: Apearance,Urine CLEAR (Clear); Bilirubin,Urine Negative (Negative); Blood, Urine Negative (Negative); Glucose,Urine (UA) Negative (Negative); Ketones,Urine 5 mg/dL (Negative); Mucus,Urine Occasional /LPF (Occasional); Nitrite,Urine Negative (Negative); Protein,Urine Negative; RBC,Urine 1 /HPF (0-4); Squamous Epithelial Cell,Urine Occasional /HPF (0-10); Urine Specific Gravity 1.045 (1.001-1.035); Urine Urobilinogen < 2.0 EU/DL (0.2-1.0); WBC,Urine 1 /HPF (0-6)
[2018-03-03 23:07] LABS: Hypochromasia 1+
[2018-03-03 23:08] LABS: Microcytosis 1+
[2018-03-03 23:09] LABS: Urine Color Orange (Yellow)
[2018-03-03 23:10] LABS: Barbiturates Screen,Urine Negative (Negative); Benzodiazepines Screen,Urine Positive (Negative); Cannabinoid Screen,Urine Negative (Negative); Opiate Screen,Urine Negative (Negative); Phencyclidine Screen,Urine Negative (Negative)
[2018-03-03 23:20] LABS: Lymphocytes 14 % (20-55); Segmented Neutrophils 86 % (50-85); Total Cells Counted 100
[2018-03-03 23:40] LABS: INR 1.5; PT Patient Result 16.1 SECS; Partial Thromboplastin Time 31.7 SECS (0-40)
[2018-03-04] MEDS ORDERED: SODIUM CHLORIDE 0.9% 1,000 ML IV PRN ×2 (00:15→19:17)
[2018-03-04] MEDS ORDERED: ONDANSETRON 4 MG/2 ML VIAL IV PRN (00:29)
[2018-03-04] MEDS ORDERED: OCTREOTIDE 100 MCG/ML SYRINGE IV ONE (00:30)
[2018-03-04] MEDS: PIPERACILLIN/TAZOBACTAM 3,375 MG in SODIUM CHLORIDE 0.9% 100 ML IV SCH ×3 (02:00→16:05)
[2018-03-04] MEDS: OCTREOTIDE 500 MCG in SODIUM CHLORIDE 0.9% 100 ML IV SCH ×2 (02:35→20:14)
[2018-03-04 05:10] LABS: Basophils % 0.3 % (0.0-0.8); Eosinophils % 0.2 % (0.00-10.9); Hematocrit 19.7 VOL% (42.0-52.0); Lymphocytes # 1.5 10*3/uL (1.4-4.0); Lymphocytes % 14.6 % (21.2-54.2); Mean Corpuscular HGB Conc 35.5 GM/DL (32-36); Mean Corpuscular Hemoglobin 35 PG (27-34); Mean Platelet Volume 11.2 FL (9.6-12.0); Monocytes # 0.9 10*3/uL (0.11-0.8); Monocytes % 8.6 % (1.7-12.7); Neutrophils # 7.9 10*3/uL (1.4-7.4); Neutrophils % 75.3 % (38.7-73.9); Red Blood Count 2.01 MC/CUMM (3.8-5.5); Red Cell Distribution Width 14.6 % (9.3-17.3); White Blood Count 10.5 T/CUMM (4-12)
[2018-03-04 05:12] LABS: Platelet Count 55 T/CUMM (130-400)
[2018-03-04 05:15] LABS: INR 1.5; PT Patient Result 15.9 SECS
[2018-03-04 05:29] LABS: Anisocytosis 2+; Platelet Estimate Decreased
[2018-03-04 05:30] LABS: Basophilic Stippling Slight; Macrocytosis 1+; Poikilocytosis Slight
[2018-03-04] MEDS: POTASSIUM CHLORIDE RIDER 10 MEQ in PREMIX 1 EACH IV PRN ×3 (05:37→10:05)
[2018-03-04 05:44] LABS: Bilirubin,Total 3.4 MG/DL (0.2-1.0); Calcium 8.1 MG/DL (8.5-10.1); Osmolality,Calculated 284.4 MOS/KG (273-304); Potassium 3.4 MMOL/L (3.5-5.1); Total Protein 5.9 G/DL (6.4-8.3)
[2018-03-04 05:47] LABS: Troponin I Only 0.058 NG/ML (0.00-0.045)
[2018-03-04 07:36] LABS: Hemoglobin 7.9 GM/DL (14.0-18.0)
[2018-03-04] MEDS: PANTOPRAZOLE 40 MG VIAL IV SCH ×2 (09:25→22:19)
[2018-03-04 12:18] LABS: Hematocrit 23.5 VOL% (42.0-52.0); Hemoglobin 8.4 GM/DL (14.0-18.0)
[2018-03-04] MEDS ORDERED: PANTOPRAZOLE 40 MG TABLET PO SCH (16:30)
[2018-03-04 18:35] LABS: Hematocrit 21.5 VOL% (42.0-52.0); Hemoglobin 7.7 GM/DL (14.0-18.0)
[2018-03-05] MEDS: PIPERACILLIN/TAZOBACTAM 3,375 MG in SODIUM CHLORIDE 0.9% 100 ML IV SCH (01:09)
[2018-03-05 05:32] LABS: Basophils # 0.1 10*3/uL (0.0-0.2); Basophils % 0.8 % (0.0-0.8); Eosinophils # 0.2 10*3/uL (0.0-0.87); Eosinophils % 2.8 % (0.00-10.9); Hematocrit 27.1 VOL% (42.0-52.0); Hemoglobin 9.6 GM/DL (14.0-18.0); Immature Granulocytes % 0.6 %; Immature Granulocytes Absolute 0.04 #; Lymphocytes # 1.7 10*3/uL (1.4-4.0); Lymphocytes % 26.3 % (21.2-54.2); Mean Corpuscular HGB Conc 35.4 GM/DL (32-36); Mean Corpuscular Hemoglobin 33 PG (27-34); Mean Corpuscular Volume 93.8 FL (87-102); Mean Platelet Volume 10.9 FL (9.6-12.0); Monocytes # 0.6 10*3/uL (0.11-0.8); Monocytes % 9.2 % (1.7-12.7); Neutrophils # 3.9 10*3/uL (1.4-7.4); Neutrophils % 60.3 % (38.7-73.9); Red Blood Count 2.89 MC/CUMM (3.8-5.5); Red Cell Distribution Width 17.4 % (9.3-17.3); White Blood Count 6.5 T/CUMM (4-12)
[2018-03-05 05:36] LABS: Platelet Count 56 T/CUMM (130-400)
[2018-03-05 05:39] LABS: INR 1.6; PT Patient Result 16.9 SECS
[2018-03-05 05:53] LABS: Hypochromasia 1+; Platelet Estimate Decreased
[2018-03-05 05:57] LABS: Macrocytosis Slight; Polychromasia Few
[2018-03-05 06:01] LABS: Calcium 7.3 MG/DL (8.5-10.1); Osmolality,Calculated 278.4 MOS/KG (273-304); Potassium 3.5 MMOL/L (3.5-5.1)
[2018-03-05] MEDS: OCTREOTIDE 500 MCG in SODIUM CHLORIDE 0.9% 100 ML IV SCH (07:10)
[2018-03-05] MEDS ORDERED: PROPOFOL 200 MG/20 ML VIAL IV ONE (07:18)
[2018-03-05] MEDS ORDERED: LIDOCAINE 2% 5 ML VIAL ONE (07:18)
[2018-03-05] MEDS ORDERED: MAGNESIUM SULF RIDER 4 GM in PREMIX 1 EACH IV ONE (09:00)
[2018-03-05] MEDS ORDERED: LEVOFLOXACIN 500 MG TABLET PO SCH (09:00)
[2018-03-05] MEDS: PHYTONADIONE 10 MG/1 ML AMP SUBCUT SCH (09:44)
[2018-03-05] MEDS: PANTOPRAZOLE 40 MG TABLET PO SCH (19:47)
[2018-03-06 06:34] LABS: Calcium 7.4 MG/DL (8.5-10.1); Osmolality,Calculated 276.4 MOS/KG (273-304); Potassium 3.4 MMOL/L (3.5-5.1)
[2018-03-06 06:39] LABS: INR 1.5; PT Patient Result 15.5 SECS
[2018-03-06] MEDS: PANTOPRAZOLE 40 MG TABLET PO SCH (06:44)
[2018-03-06] MEDS ORDERED: FUROSEMIDE 40 MG TABLET PO SCH (09:00)
[2018-03-06 09:12] LABS: Basophils # 0.1 10*3/uL (0.0-0.2); Basophils % 1.1 % (0.0-0.8); Eosinophils # 0.3 10*3/uL (0.0-0.87); Eosinophils % 3.3 % (0.00-10.9); Hematocrit 34.3 VOL% (42.0-52.0); Immature Granulocytes Absolute 0.08 #; Lymphocytes # 2.9 10*3/uL (1.4-4.0); Lymphocytes % 35.9 % (21.2-54.2); Mean Corpuscular HGB Conc 34.7 GM/DL (32-36); Mean Corpuscular Hemoglobin 33 PG (27-34); Mean Corpuscular Volume 96.1 FL (87-102); Mean Platelet Volume 10.8 FL (9.6-12.0); Monocytes # 0.8 10*3/uL (0.11-0.8); Monocytes % 9.9 % (1.7-12.7); Neutrophils % 48.8 % (38.7-73.9); Platelet Count 83 T/CUMM (130-400); Red Blood Count 3.57 MC/CUMM (3.8-5.5); Red Cell Distribution Width 19.1 % (9.3-17.3); White Blood Count 8.2 T/CUMM (4-12)
[2018-03-06 09:19] LABS: Hemoglobin 11.9 GM/DL (14.0-18.0)
[2018-03-06 09:45] LABS: Eosinophils 3 % (0-10); Lymphocytes 42 % (20-55); Platelet Estimate Normal; Segmented Neutrophils 54 % (50-85); Total Cells Counted 100
[2018-03-06 09:46] LABS: Burr Cells 1+
[2018-03-06 09:47] LABS: Polychromasia 1+
[2018-03-06 09:49] LABS: Target Cells Few
[2018-03-06 09:51] LABS: Spherocytes 2+
[2018-03-06] MEDS: PHYTONADIONE 10 MG/1 ML AMP SUBCUT SCH (10:36)
[2018-03-06 20:26] VITALS: BP 121/69
== END 2018-03-06 13:44 | disposition home or self-care (01) | DRG 253 ==
LOC: N.ED 21:34 → SUATTDRO 03-04 00:07 → N.EDINP 03-04 00:17 → N.ICU 03-04 10:51 → N.3E 03-05 11:30
PROVIDERS: ADMIT Internal Medicine; ATTEND Internal Medicine

== ENCOUNTER 2019-03-03 12:35 | Inpatient (IN) ==
[2019-03-03 13:29] LABS: Basophils # 0.2 10*3/uL (0.0-0.2); Basophils % 0.8 % (0.0-0.8); Eosinophils % 0.2 % (0.00-10.9); Hemoglobin 7.1 GM/DL (14.0-18.0); Immature Granulocytes Absolute 1.13 #; Lymphocytes # 1.8 10*3/uL (1.4-4.0); Lymphocytes % 9.3 % (21.2-54.2); Mean Corpuscular HGB Conc 37.4 GM/DL (32-36); Mean Corpuscular Volume 105.6 FL (87-102); Mean Platelet Volume 10.8 FL (9.6-12.0); Monocytes % 9.8 % (1.7-12.7); Neutrophils % 73.9 % (38.7-73.9); Platelet Count 108 T/CUMM (130-400); Red Cell Distribution Width 16.3 % (9.3-17.3); White Blood Count 18.9 T/CUMM (4-12)
[2019-03-03 13:54] LABS: Alanine Aminotransferase 45 U/L (16-61); Albumin 1.7 G/DL (3.4-5.0); Alkaline Phosphatase 110 U/L (45-117); Aspartate Amino Transferase 187 U/L (0-37); Blood Urea Nitrogen 14 MG/DL (7-18); Calcium 8.1 MG/DL (8.5-10.1); Glucose 69 MG/DL (74-106); Osmolality,Calculated 260.7 MOS/KG (273-304); Total Protein 7.2 G/DL (6.4-8.3); Troponin I < 0.015 NG/ML (0.00-0.045)
[2019-03-03 14:00] LABS: Band Neutrophils 1 % (0-10); Lymphocytes 12 % (20-55); Segmented Neutrophils 85 % (50-85); Total Cells Counted 100
[2019-03-03 14:01] LABS: Anisocytosis 2+; Burr Cells 2+; Macrocytosis 2+; Platelet Estimate Decreased; Target Cells Few
[2019-03-03] MEDS ORDERED: SODIUM CHLORIDE 0.9% 1,000 ML IV PRN ×2 (15:12→15:49)
[2019-03-03] MEDS ORDERED: ONDANSETRON 4 MG/2 ML VIAL IV PRN (15:43)
[2019-03-03] MEDS ORDERED: LACTULOSE 20 GM/30 ML UDCUP PO PRN (15:43)
[2019-03-03] MEDS ORDERED: MAGNESIUM SULF RIDER 4 GM in PREMIX 1 EACH IV PRN (15:48)
[2019-03-03] MEDS ORDERED: FUROSEMIDE 40 MG/4 ML VIAL IV ONE (15:50)
[2019-03-03] MEDS: PANTOPRAZOLE 40 MG TABLET PO SCH (21:39)
[2019-03-04] MEDS: ALBUMIN 25% 25 GM in PREMIX 1 EACH IV SCH ×4 (01:13→15:46)
[2019-03-04 01:51] LABS: Amorphous Crystals,Urine Occasional /HPF (Few); Apearance,Urine Slightly Hazy (Clear); Bacteria,Urine Occasional /HPF (Few); Blood, Urine Small mg/dL (Negative); Glucose,Urine (UA) Negative (Negative); Granular Casts,Urine 4 /LPF (0-1); Hyaline Casts,Urine 59 /LPF (0-3); Ketones,Urine Negative (Negative); Mucus,Urine Occasional /LPF (Occasional); Nitrite,Urine Negative (Negative); Protein,Urine Negative; RBC,Urine 3 /HPF (0-4); Renal Epithelial Cells,Urine Moderate /HPF (<1); Squamous Epithelial Cell,Urine Occasional /HPF (0-10); Urine Color Amber (Yellow)
[2019-03-04 01:52] LABS: Bilirubin,Urine Moderate mg/dL (Negative)
[2019-03-04 07:06] LABS: Albumin 1.7 G/DL (3.4-5.0); Calcium 7.8 MG/DL (8.5-10.1); Osmolality,Calculated 268.4 MOS/KG (273-304); Total Protein 5.7 G/DL (6.4-8.3)
[2019-03-04 07:19] LABS: HDL Cholesterol 18 MG/DL (40-60); Risk Ratio 2.78; Triglycerides 77 MG/DL (2-150); VLDL CHOLESTEROL 15.4 MG/DL
[2019-03-04 07:24] LABS: Basophils # 0.1 10*3/uL (0.0-0.2); Basophils % 0.4 % (0.0-0.8); Eosinophils # 0.1 10*3/uL (0.0-0.87); Eosinophils % 0.6 % (0.00-10.9); Hematocrit 18.8 VOL% (42.0-52.0); Immature Granulocytes % 3.4 %; Immature Granulocytes Absolute 0.42 #; Lymphocytes # 1.5 10*3/uL (1.4-4.0); Lymphocytes % 11.8 % (21.2-54.2); Mean Corpuscular HGB Conc 35.6 GM/DL (32-36); Mean Corpuscular Volume 97.4 FL (87-102); Mean Platelet Volume 10.6 FL (9.6-12.0); Monocytes % 12.2 % (1.7-12.7); Neutrophils % 71.6 % (38.7-73.9); Red Blood Count 1.93 MC/CUMM (3.8-5.5); Red Cell Distribution Width 18.5 % (9.3-17.3)
[2019-03-04 07:24] LABS: Bilirubin,Total 18.6 MG/DL (0.2-1.0)
[2019-03-04 07:27] LABS: Hemoglobin 6.7 GM/DL (14.0-18.0); Platelet Count 66 T/CUMM (130-400); White Blood Count 12.5 T/CUMM (4-12)
[2019-03-04 07:42] LABS: Hypochromasia 1+; Ovalocytes Slight; Platelet Estimate Decreased
[2019-03-04 07:43] LABS: Macrocytosis Slight
[2019-03-04] MEDS ORDERED: SODIUM CHLORIDE 0.9% 1,000 ML IV PRN (08:07)
[2019-03-04] MEDS: POTASSIUM CHLORIDE 20 MEQ TABLET PO PRN ×3 (08:48→15:46)
[2019-03-04] MEDS: PANTOPRAZOLE 40 MG TABLET PO SCH ×2 (08:48→23:00)
[2019-03-04] MEDS ORDERED: PANTOPRAZOLE 40 MG TABLET PO SCH (09:00)
[2019-03-04 09:24] LABS: INR 2.6
[2019-03-04 09:25] LABS: PT Patient Result 28.2 SECS
[2019-03-04] MEDS ORDERED: PHYTONADIONE 10 MG/1 ML AMP SUBCUT ONE (18:30)
[2019-03-04 21:36] LABS: Hematocrit 26.5 VOL% (42.0-52.0)
[2019-03-04 21:37] LABS: Hemoglobin 9.7 GM/DL (14.0-18.0)
[2019-03-04] MEDS: CHLORHEXIDINE 0.12% ORAL RINSE 60 ML BOTTLE SWISH/SPIT SCH (23:00)
[2019-03-05] MEDS: ALBUMIN 25% 25 GM in PREMIX 1 EACH IV SCH ×3 (00:06→16:09)
[2019-03-05 05:06] LABS: Basophils # 0.1 10*3/uL (0.0-0.2); Basophils % 0.8 % (0.0-0.8); Eosinophils # 0.1 10*3/uL (0.0-0.87); Eosinophils % 0.9 % (0.00-10.9); Hematocrit 23.5 VOL% (42.0-52.0); Hemoglobin 8.7 GM/DL (14.0-18.0); Immature Granulocytes Absolute 0.17 #; Lymphocytes # 0.9 10*3/uL (1.4-4.0); Mean Corpuscular Volume 90.7 FL (87-102); Mean Platelet Volume 10.3 FL (9.6-12.0); Monocytes % 11.2 % (1.7-12.7); Neutrophils % 75.1 % (38.7-73.9); Red Blood Count 2.59 MC/CUMM (3.8-5.5); Red Cell Distribution Width 18.6 % (9.3-17.3); White Blood Count 8.7 T/CUMM (4-12)
[2019-03-05 05:08] LABS: Platelet Count 60 T/CUMM (130-400)
[2019-03-05 05:31] LABS: Eosinophils 1 % (0-10); Hypochromasia 1+; Lymphocytes 6 % (20-55); Ovalocytes Slight; Platelet Estimate Decreased; Segmented Neutrophils 85 % (50-85); Total Cells Counted 100
[2019-03-05 05:32] LABS: Albumin 2.8 G/DL (3.4-5.0); Calcium 8.3 MG/DL (8.5-10.1); Macrocytosis Slight; Osmolality,Calculated 279.5 MOS/KG (273-304); Total Protein 6.6 G/DL (6.4-8.3)
[2019-03-05 05:34] LABS: Bilirubin,Total 24.2 MG/DL (0.2-1.0)
[2019-03-05] MEDS ORDERED: POTASSIUM CHLORIDE RIDER 10 MEQ in PREMIX 1 EACH IV PRN (06:29)
[2019-03-05 08:41] LABS: INR 2.8
[2019-03-05] MEDS: THIAMINE 100 MG TABLET PO SCH (08:45)
[2019-03-05] MEDS: FOLIC ACID 1 MG TABLET PO SCH (08:45)
[2019-03-05] MEDS: PANTOPRAZOLE 40 MG TABLET PO SCH ×2 (08:45→20:53)
[2019-03-05] MEDS: CHLORHEXIDINE 0.12% ORAL RINSE 60 ML BOTTLE SWISH/SPIT SCH ×2 (08:48→20:53)
[2019-03-05] MEDS ORDERED: PROPOFOL 200 MG/20 ML VIAL IV ONE (10:00)
[2019-03-05] MEDS ORDERED: LIDOCAINE 2% 5 ML VIAL ONE (10:00)
[2019-03-05] MEDS: LACTATED RINGERS 1,000 ML IV SCH (10:21)
[2019-03-05] MEDS: LACTULOSE 20 GM/30 ML UDCUP PO SCH ×4 (13:27→22:20)
[2019-03-05] MEDS: POTASSIUM CHLORIDE 20 MEQ TABLET PO PRN ×2 (14:37→17:18)
[2019-03-05] MEDS: SODIUM BICARBONATE 650 MG TABLET PO SCH (20:55)
[2019-03-05 23:37] LABS: Hematocrit 22.3 VOL% (42.0-52.0); Hemoglobin 8.3 GM/DL (14.0-18.0)
[2019-03-06] MEDS: ALBUMIN 25% 25 GM in PREMIX 1 EACH IV SCH ×3 (00:47→17:16)
[2019-03-06] MEDS: LACTULOSE 20 GM/30 ML UDCUP PO SCH ×4 (03:21→20:51)
[2019-03-06 05:06] LABS: Basophils # 0.1 10*3/uL (0.0-0.2); Basophils % 0.7 % (0.0-0.8); Eosinophils # 0.1 10*3/uL (0.0-0.87); Hematocrit 21.6 VOL% (42.0-52.0); Hemoglobin 8.1 GM/DL (14.0-18.0); Immature Granulocytes % 1.4 %; Immature Granulocytes Absolute 0.12 #; Lymphocytes # 1.4 10*3/uL (1.4-4.0); Lymphocytes % 15.6 % (21.2-54.2); Mean Corpuscular HGB Conc 37.5 GM/DL (32-36); Mean Corpuscular Volume 90.4 FL (87-102); Mean Platelet Volume 10.7 FL (9.6-12.0); Monocytes % 12.3 % (1.7-12.7); Platelet Count 70 T/CUMM (130-400); Red Blood Count 2.39 MC/CUMM (3.8-5.5); Red Cell Distribution Width 19.9 % (9.3-17.3); White Blood Count 8.8 T/CUMM (4-12)
[2019-03-06] MEDS: POTASSIUM CHLORIDE 20 MEQ TABLET PO PRN ×4 (05:22→17:17)
[2019-03-06 05:28] LABS: Hypochromasia 1+; Platelet Estimate Decreased; Target Cells Few
[2019-03-06 05:29] LABS: Macrocytosis Slight
[2019-03-06 05:55] LABS: Albumin 3.3 G/DL (3.4-5.0); Calcium 8.9 MG/DL (8.5-10.1); Osmolality,Calculated 283.1 MOS/KG (273-304); Total Protein 6.6 G/DL (6.4-8.3)
[2019-03-06 05:57] LABS: Bilirubin,Total 27.6 MG/DL (0.2-1.0)
[2019-03-06 09:51] LABS: PT Patient Result 29.1 SECS
[2019-03-06 09:52] LABS: INR 2.7
[2019-03-06] MEDS: FOLIC ACID 1 MG TABLET PO SCH (10:16)
[2019-03-06] MEDS: PANTOPRAZOLE 40 MG TABLET PO SCH ×2 (10:16→20:51)
[2019-03-06] MEDS: SODIUM BICARBONATE 650 MG TABLET PO SCH ×2 (10:16→20:55)
[2019-03-06] MEDS: CHLORHEXIDINE 0.12% ORAL RINSE 60 ML BOTTLE SWISH/SPIT SCH ×2 (10:17→20:51)
[2019-03-06] MEDS: THIAMINE 100 MG TABLET PO SCH (10:17)
[2019-03-06 11:13] LABS: Apearance,Urine CLEAR (Clear); Bacteria,Urine Occasional /HPF (Few); Bilirubin,Urine Moderate mg/dL (Negative); Blood, Urine Moderate mg/dL (Negative); Glucose,Urine (UA) Negative (Negative); Ketones,Urine 5 mg/dL (Negative); Mucus,Urine Occasional /LPF (Occasional); Nitrite,Urine Negative (Negative); Protein,Urine Negative; RBC,Urine 27 /HPF (0-4); Squamous Epithelial Cell,Urine Occasional /HPF (0-10); Urine Color Amber (Yellow); Urine Specific Gravity 1.017 (1.001-1.035); WBC,Urine 1 /HPF (0-6)
[2019-03-06] MEDS: MAGNESIUM SULF RIDER 2 GM in PREMIX 1 EACH IV PRN ×2 (13:41→15:38)
[2019-03-06] MEDS: prednisoLONE 5 MG TABLET PO SCH (14:56)
[2019-03-07] MEDS: ALBUMIN 25% 25 GM in PREMIX 1 EACH IV SCH ×2 (00:22→08:41)
[2019-03-07 01:09] LABS: Basophils % 0.1 % (0.0-0.8); Hematocrit 18.5 VOL% (42.0-52.0); Hemoglobin 6.7 GM/DL (14.0-18.0); Immature Granulocytes % 1.2 %; Immature Granulocytes Absolute 0.09 #; Lymphocytes # 0.6 10*3/uL (1.4-4.0); Lymphocytes % 7.4 % (21.2-54.2); Mean Corpuscular HGB Conc 36.2 GM/DL (32-36); Mean Corpuscular Volume 92.5 FL (87-102); Mean Platelet Volume 10.9 FL (9.6-12.0); Monocytes % 6.1 % (1.7-12.7); Neutrophils % 85.2 % (38.7-73.9); Platelet Count 56 T/CUMM (130-400); Red Cell Distribution Width 20.4 % (9.3-17.3); White Blood Count 7.4 T/CUMM (4-12)
[2019-03-07] MEDS: LACTATED RINGERS 1,000 ML IV SCH (01:29)
[2019-03-07] MEDS: POTASSIUM CHLORIDE 20 MEQ TABLET PO PRN (06:31)
[2019-03-07 07:39] LABS: Albumin 3.4 G/DL (3.4-5.0); Calcium 8.2 MG/DL (8.5-10.1); Osmolality,Calculated 276.7 MOS/KG (273-304); Total Protein 6.4 G/DL (6.4-8.3)
[2019-03-07 07:42] LABS: Bilirubin,Total 25.1 MG/DL (0.2-1.0)
[2019-03-07] MEDS ORDERED: SODIUM CHLORIDE 0.9% 1,000 ML IV PRN (07:44)
[2019-03-07] MEDS: SODIUM BICARBONATE 650 MG TABLET PO SCH ×2 (08:41→20:18)
[2019-03-07] MEDS: FOLIC ACID 1 MG TABLET PO SCH (08:42)
[2019-03-07] MEDS: THIAMINE 100 MG TABLET PO SCH (08:42)
[2019-03-07] MEDS: LACTULOSE 20 GM/30 ML UDCUP PO SCH ×2 (08:42→20:18)
[2019-03-07] MEDS: CHLORHEXIDINE 0.12% ORAL RINSE 60 ML BOTTLE SWISH/SPIT SCH ×2 (08:42→20:18)
[2019-03-07] MEDS: PANTOPRAZOLE 40 MG TABLET PO SCH ×2 (08:42→20:18)
[2019-03-07] MEDS: prednisoLONE 5 MG TABLET PO SCH (08:42)
[2019-03-07 18:31] LABS: Hematocrit 25.2 VOL% (42.0-52.0)
[2019-03-08 06:07] LABS: Hematocrit 24.6 VOL% (42.0-52.0); Hemoglobin 8.6 GM/DL (14.0-18.0); White Blood Count 14.6 T/CUMM (4-12)
[2019-03-08 06:08] LABS: Basophils % 0.2 % (0.0-0.8); Eosinophils % 0.3 % (0.00-10.9); Immature Granulocytes % 1.2 %; Immature Granulocytes Absolute 0.17 #; Lymphocytes # 1.9 10*3/uL (1.4-4.0); Lymphocytes % 12.9 % (21.2-54.2); Mean Corpuscular Volume 91.1 FL (87-102); Mean Platelet Volume 11.3 FL (9.6-12.0); Monocytes % 11.4 % (1.7-12.7); Platelet Count 75 T/CUMM (130-400); Red Cell Distribution Width 19.6 % (9.3-17.3)
[2019-03-08 06:43] LABS: Calcium 8.6 MG/DL (8.5-10.1); Osmolality,Calculated 275.7 MOS/KG (273-304)
[2019-03-08 06:57] LABS: Haptoglobin < 8.0 MG/DL (30-200)
[2019-03-08 07:05] LABS: Lymphocytes 18 % (20-55); Segmented Neutrophils 78 % (50-85); Total Cells Counted 100
[2019-03-08 07:06] LABS: Anisocytosis 1+; Microcytosis 1+; Platelet Estimate Decreased
[2019-03-08 07:07] LABS: Hypochromasia Slight; Target Cells 1+
[2019-03-08 07:51] LABS: PT Patient Result > 200.0 SECS
[2019-03-08 07:54] LABS: INR > 21.0
[2019-03-08] MEDS: POTASSIUM CHLORIDE 20 MEQ TABLET PO PRN ×3 (08:40→15:51)
[2019-03-08] MEDS: SODIUM BICARBONATE 650 MG TABLET PO SCH ×2 (08:40→21:12)
[2019-03-08] MEDS: THIAMINE 100 MG TABLET PO SCH (08:40)
[2019-03-08] MEDS: LACTULOSE 20 GM/30 ML UDCUP PO SCH ×2 (08:40→21:11)
[2019-03-08] MEDS: FOLIC ACID 1 MG TABLET PO SCH (08:41)
[2019-03-08] MEDS: prednisoLONE 5 MG TABLET PO SCH (08:41)
[2019-03-08] MEDS: PANTOPRAZOLE 40 MG TABLET PO SCH ×2 (08:41→21:12)
[2019-03-08] MEDS: CHLORHEXIDINE 0.12% ORAL RINSE 60 ML BOTTLE SWISH/SPIT SCH ×2 (08:41→21:15)
[2019-03-08] MEDS ORDERED: PHYTONADIONE 5 MG/5 ML ORAL.SYR PO ONE (08:50)
[2019-03-08 10:37] LABS: Albumin 3.7 G/DL (3.4-5.0); Bilirubin,Direct 11.61 MG/DL (0.0-0.20); Total Protein 7.4 G/DL (6.4-8.3)
[2019-03-08 10:43] LABS: Bilirubin,Indirect 17.1 MG/DL (0.0-1.0); Bilirubin,Total 28.7 MG/DL (0.2-1.0)
[2019-03-09 05:46] LABS: Basophils % 0.1 % (0.0-0.8); Eosinophils # 0.1 10*3/uL (0.0-0.87); Eosinophils % 0.5 % (0.00-10.9); Hematocrit 22.9 VOL% (42.0-52.0); Hemoglobin 8.2 GM/DL (14.0-18.0); Immature Granulocytes % 2.4 %; Immature Granulocytes Absolute 0.36 #; Lymphocytes # 1.8 10*3/uL (1.4-4.0); Lymphocytes % 11.7 % (21.2-54.2); Mean Corpuscular HGB Conc 35.8 GM/DL (32-36); Mean Corpuscular Volume 91.6 FL (87-102); Mean Platelet Volume 11.4 FL (9.6-12.0); Neutrophils % 72.3 % (38.7-73.9); Platelet Count 67 T/CUMM (130-400); Red Cell Distribution Width 20.3 % (9.3-17.3); White Blood Count 15.1 T/CUMM (4-12)
[2019-03-09 06:05] LABS: Calcium 8.7 MG/DL (8.5-10.1); Osmolality,Calculated 274.8 MOS/KG (273-304)
[2019-03-09 06:10] LABS: Hypochromasia 1+; Platelet Estimate Decreased
[2019-03-09 06:11] LABS: Microcytosis 1+
[2019-03-09 06:12] LABS: Calcium 8.6 MG/DL (8.5-10.1); Osmolality,Calculated 275.7 MOS/KG (273-304)
[2019-03-09 07:53] LABS: PT Patient Result > 200.0 SECS
[2019-03-09 08:07] LABS: INR > 20.0
[2019-03-09] MEDS: SODIUM BICARBONATE 650 MG TABLET PO SCH ×2 (09:15→22:03)
[2019-03-09] MEDS: PANTOPRAZOLE 40 MG TABLET PO SCH ×2 (09:15→22:04)
[2019-03-09] MEDS: FOLIC ACID 1 MG TABLET PO SCH (09:16)
[2019-03-09] MEDS: THIAMINE 100 MG TABLET PO SCH (09:16)
[2019-03-09] MEDS: LACTULOSE 20 GM/30 ML UDCUP PO SCH ×3 (09:17→22:02)
[2019-03-09] MEDS: POTASSIUM CHLORIDE 20 MEQ TABLET PO PRN (09:18)
[2019-03-09] MEDS: prednisoLONE 5 MG TABLET PO SCH (09:19)
[2019-03-09] MEDS: CHLORHEXIDINE 0.12% ORAL RINSE 60 ML BOTTLE SWISH/SPIT SCH ×2 (09:21→22:03)
[2019-03-09] MEDS ORDERED: PHYTONADIONE 5 MG/5 ML ORAL.SYR PO ONE (16:27)
[2019-03-10 05:25] LABS: Basophils % 0.2 % (0.0-0.8); Eosinophils # 0.1 10*3/uL (0.0-0.87); Eosinophils % 0.5 % (0.00-10.9); Immature Granulocytes % 3.8 %; Immature Granulocytes Absolute 0.61 #; Lymphocytes # 1.9 10*3/uL (1.4-4.0); Lymphocytes % 11.8 % (21.2-54.2); Mean Corpuscular HGB Conc 34.8 GM/DL (32-36); Mean Corpuscular Volume 93.5 FL (87-102); Mean Platelet Volume 11.3 FL (9.6-12.0); Monocytes % 11.9 % (1.7-12.7); Neutrophils % 71.8 % (38.7-73.9); Platelet Count 70 T/CUMM (130-400); Red Blood Count 2.46 MC/CUMM (3.8-5.5); Red Cell Distribution Width 20.7 % (9.3-17.3); White Blood Count 16.3 T/CUMM (4-12)
[2019-03-10 05:45] LABS: INR 2.8
[2019-03-10 05:48] LABS: Eosinophils 1 % (0-10); Lymphocytes 14 % (20-55); Nucleated Red Blood Cells 1 (0-5); Segmented Neutrophils 75 % (50-85); Total Cells Counted 100
[2019-03-10 05:49] LABS: Acanthocytes Few; Anisocytosis 1+; Hypochromasia 1+; Ovalocytes Few; Platelet Estimate Decreased; Target Cells 1+
[2019-03-10 05:59] LABS: Calcium 8.5 MG/DL (8.5-10.1); Osmolality,Calculated 272.8 MOS/KG (273-304)
[2019-03-10 06:21] LABS: Folate 7.7 NG/ML (5.4-24.0); Vitamin B12 > 2000 PG/ML (211-911)
[2019-03-10] MEDS: THIAMINE 100 MG TABLET PO SCH (09:08)
[2019-03-10] MEDS: FOLIC ACID 1 MG TABLET PO SCH (09:08)
[2019-03-10] MEDS: PANTOPRAZOLE 40 MG TABLET PO SCH (09:08)
[2019-03-10] MEDS: SODIUM BICARBONATE 650 MG TABLET PO SCH (09:08)
[2019-03-10] MEDS: prednisoLONE 5 MG TABLET PO SCH (09:09)
[2019-03-10] MEDS: LACTULOSE 20 GM/30 ML UDCUP PO SCH (09:10)
[2019-03-10] MEDS: CHLORHEXIDINE 0.12% ORAL RINSE 60 ML BOTTLE SWISH/SPIT SCH (09:11)
[2019-03-10 11:34] VITALS: BP 145/75
== END 2019-03-10 13:58 | disposition home or self-care (01) | DRG 280 ==
LOC: N.ED 12:35 → N.EDINP 15:43 → SUATTDRO 15:43 → N.5E 18:14
PROVIDERS: ATTEND Family Medicine

== ENCOUNTER 2019-03-15 05:31 | Inpatient (IN) ==
[2019-03-15 07:03] LABS: Basophils # 0.1 10*3/uL (0.0-0.2); Basophils % 0.2 % (0.0-0.8); Eosinophils % 0.1 % (0.00-10.9); Hematocrit 28.6 VOL% (42.0-52.0); Hemoglobin 9.9 GM/DL (14.0-18.0); Immature Granulocytes % 1.3 %; Immature Granulocytes Absolute 0.38 #; Lymphocytes # 1.6 10*3/uL (1.4-4.0); Lymphocytes % 5.6 % (21.2-54.2); Mean Corpuscular HGB Conc 34.6 GM/DL (32-36); Mean Corpuscular Volume 97.6 FL (87-102); Mean Platelet Volume 12.5 FL (9.6-12.0); Monocytes % 5.4 % (1.7-12.7); Neutrophils % 87.4 % (38.7-73.9); Platelet Count 130 T/CUMM (130-400); Red Blood Count 2.93 MC/CUMM (3.8-5.5); Red Cell Distribution Width 23.2 % (9.3-17.3); White Blood Count 28.6 T/CUMM (4-12)
[2019-03-15 07:15] LABS: INR 2.1
[2019-03-15 07:18] LABS: Albumin 2.9 G/DL (3.4-5.0); Calcium 8.7 MG/DL (8.5-10.1); Osmolality,Calculated 276.1 MOS/KG (273-304); Total Protein 6.8 G/DL (6.4-8.3)
[2019-03-15] MEDS ORDERED: ONDANSETRON 4 MG/2 ML VIAL ONE (07:21)
[2019-03-15] MEDS ORDERED: ONDANSETRON 4 MG/2 ML VIAL IV STA (07:25)
[2019-03-15] MEDS ORDERED: PIPERACILLIN/TAZOBACTAM 3,375 MG in SODIUM CHLORIDE 0.9% 100 ML IV STA (08:56)
[2019-03-15] MEDS ORDERED: LACTATED RINGERS 1,000 ML IV SCH (09:00)
[2019-03-15] MEDS ORDERED: LACTATED RINGERS 1,000 ML IV ONE (09:38)
[2019-03-15] MEDS ORDERED: ONDANSETRON 4 MG/2 ML VIAL IV PRN (10:50)
[2019-03-15] MEDS ORDERED: ALBUTEROL/IPRATROPIUM 3 ML NEB RESP TX PRN (10:57)
[2019-03-15] MEDS ORDERED: PIPERACILLIN/TAZOBACTAM 3,375 MG in SODIUM CHLORIDE 0.9% 100 ML IV SCH (11:00)
[2019-03-15 11:11] LABS: Apearance,Urine CLEAR (Clear); Bilirubin,Urine Moderate mg/dL (Negative); Blood, Urine Small mg/dL (Negative); Glucose,Urine (UA) Negative (Negative); Ketones,Urine Negative (Negative); Nitrite,Urine Negative (Negative); Protein,Urine Negative; RBC,Urine 1 /HPF (0-4); Squamous Epithelial Cell,Urine Occasional /HPF (0-10); Urine Color Amber (Yellow); Urine Specific Gravity 1.035 (1.001-1.035); WBC,Urine 1 /HPF (0-6)
[2019-03-15] MEDS: PIPERACILLIN/TAZOBACTAM 3,375 MG in SODIUM CHLORIDE 0.9% 100 ML IV SCH ×2 (14:28→20:21)
[2019-03-15] MEDS: PANTOPRAZOLE 40 MG TABLET PO SCH (18:05)
[2019-03-15] MEDS: MELOXICAM 7.5 MG TABLET PO SCH (20:22)
[2019-03-15] MEDS: SODIUM BICARBONATE 650 MG TABLET PO SCH (20:22)
[2019-03-16 01:11] LABS: INR 2.4
[2019-03-16 01:13] LABS: PT Patient Result 25.4 SECS (9.6-12.2)
[2019-03-16] MEDS: LACTATED RINGERS 1,000 ML IV SCH ×3 (02:31→18:30)
[2019-03-16 06:08] LABS: Calcium 8.3 MG/DL (8.5-10.1); Osmolality,Calculated 276.2 MOS/KG (273-304)
[2019-03-16] MEDS: PIPERACILLIN/TAZOBACTAM 3,375 MG in SODIUM CHLORIDE 0.9% 100 ML IV SCH ×3 (06:10→22:00)
[2019-03-16] MEDS: PANTOPRAZOLE 40 MG TABLET PO SCH ×2 (06:10→21:56)
[2019-03-16 06:12] LABS: Albumin 2.5 G/DL (3.4-5.0); Bilirubin,Direct 13.05 MG/DL (0.0-0.20); Total Protein 5.6 G/DL (6.4-8.3)
[2019-03-16 06:20] LABS: Bilirubin,Indirect 10.5 MG/DL (0.0-1.0); Bilirubin,Total 23.5 MG/DL (0.2-1.0)
[2019-03-16 07:04] LABS: Basophils # 0.1 10*3/uL (0.0-0.2); Basophils % 0.2 % (0.0-0.8); Eosinophils # 0.1 10*3/uL (0.0-0.87); Eosinophils % 0.3 % (0.00-10.9); Hemoglobin 8.1 GM/DL (14.0-18.0); Immature Granulocytes Absolute 0.22 #; Lymphocytes # 1.2 10*3/uL (1.4-4.0); Lymphocytes % 5.6 % (21.2-54.2); Mean Corpuscular HGB Conc 35.2 GM/DL (32-36); Mean Platelet Volume 11.5 FL (9.6-12.0); Monocytes % 5.6 % (1.7-12.7); Neutrophils % 87.3 % (38.7-73.9); Red Blood Count 2.42 MC/CUMM (3.8-5.5); Red Cell Distribution Width 23.6 % (9.3-17.3); White Blood Count 21.4 T/CUMM (4-12)
[2019-03-16 07:09] LABS: Platelet Count 84 T/CUMM (130-400)
[2019-03-16 07:41] LABS: Band Neutrophils 3 % (0-10); Eosinophils 1 % (0-10); Hypochromasia 1+; Lymphocytes 7 % (20-55); Platelet Estimate Decreased; Segmented Neutrophils 80 % (50-85); Total Cells Counted 100
[2019-03-16] MEDS: SODIUM BICARBONATE 650 MG TABLET PO SCH ×2 (08:57→21:56)
[2019-03-16] MEDS: FOLIC ACID 1 MG TABLET PO SCH (08:57)
[2019-03-16] MEDS: LACTULOSE 20 GM/30 ML UDCUP PO SCH (08:57)
[2019-03-16] MEDS: FUROSEMIDE 40 MG/4 ML VIAL IV SCH (08:57)
[2019-03-16] MEDS: POTASSIUM CHLORIDE 20 MEQ/15 ML UDCUP PO SCH (08:57)
[2019-03-16] MEDS ORDERED: prednisoLONE 15 MG/5 ML ORAL.SYR PO SCH (09:00)
[2019-03-16] MEDS ORDERED: predniSONE 20 MG TABLET PO SCH (09:00)
[2019-03-16] MEDS: prednisoLONE 15 MG/5 ML ORAL.SYR PO SCH (09:31)
[2019-03-16] MEDS ORDERED: SODIUM CHLORIDE 0.9% 1,000 ML IV PRN (17:04)
[2019-03-16] MEDS ORDERED: PHYTONADIONE INJ 10 MG in SODIUM CHLORIDE 0.9% 50 ML IV ONE (18:00)
[2019-03-16] MEDS: MELOXICAM 7.5 MG TABLET PO SCH (21:56)
[2019-03-17] MEDS: PIPERACILLIN/TAZOBACTAM 3,375 MG in SODIUM CHLORIDE 0.9% 100 ML IV SCH ×3 (05:21→23:21)
[2019-03-17] MEDS: PANTOPRAZOLE 40 MG TABLET PO SCH ×2 (06:06→21:40)
[2019-03-17 06:41] LABS: PT Patient Result 21.6 SECS (9.6-12.2); Partial Thromboplastin Time 59.3 SECS (20.8-36.0)
[2019-03-17 06:49] LABS: Albumin 2.7 G/DL (3.4-5.0); Bilirubin,Direct 14.85 MG/DL (0.0-0.20); Bilirubin,Indirect 9.6 MG/DL (0.0-1.0); Total Protein 6.6 G/DL (6.4-8.3)
[2019-03-17 06:52] LABS: Bilirubin,Total 24.4 MG/DL (0.2-1.0)
[2019-03-17] MEDS: LACTATED RINGERS 1,000 ML IV SCH ×2 (11:23→18:04)
[2019-03-17 13:48] LABS: INR 1.5; PT Patient Result 16.4 SECS (9.6-12.2)
[2019-03-17 13:53] LABS: Partial Thromboplastin Time 42.4 SECS (20.8-36.0)
[2019-03-17] MEDS: POTASSIUM CHLORIDE 20 MEQ/15 ML UDCUP PO SCH (17:44)
[2019-03-17] MEDS: SODIUM BICARBONATE 650 MG TABLET PO SCH ×2 (17:47→21:40)
[2019-03-17] MEDS: SPIRONOLACTONE 50 MG TABLET PO SCH (17:47)
[2019-03-17] MEDS: FOLIC ACID 1 MG TABLET PO SCH (17:47)
[2019-03-17] MEDS: LACTULOSE 20 GM/30 ML UDCUP PO SCH (17:48)
[2019-03-17] MEDS: prednisoLONE 15 MG/5 ML ORAL.SYR PO SCH (17:49)
[2019-03-17] MEDS: PHYTONADIONE 5 MG/5 ML ORAL.SYR PO SCH (17:49)
[2019-03-17] MEDS ORDERED: ALBUMIN 25% 50 GM in PREMIX 1 EACH IV ONE (18:31)
[2019-03-17] MEDS: FUROSEMIDE 40 MG/4 ML VIAL IV SCH (23:21)
[2019-03-17] MEDS: PROPRANOLOL 10 MG TABLET PO SCH (23:21)
[2019-03-18 06:02] LABS: Basophils % 0.2 % (0.0-0.8); Hematocrit 19.6 VOL% (42.0-52.0); Immature Granulocytes % 5.2 %; Immature Granulocytes Absolute 1.08 #; Lymphocytes # 0.6 10*3/uL (1.4-4.0); Mean Corpuscular HGB Conc 35.7 GM/DL (32-36); Mean Platelet Volume 11.6 FL (9.6-12.0); Monocytes % 7.8 % (1.7-12.7); Neutrophils % 83.8 % (38.7-73.9); Red Blood Count 2.02 MC/CUMM (3.8-5.5); Red Cell Distribution Width 22.5 % (9.3-17.3); White Blood Count 20.6 T/CUMM (4-12)
[2019-03-18 06:09] LABS: Platelet Count 78 T/CUMM (130-400)
[2019-03-18 06:09] LABS: INR 1.7; PT Patient Result 18.3 SECS (9.6-12.2)
[2019-03-18 06:19] LABS: Acanthocytes Few; Eosinophils 1 % (0-10); Hypochromasia 1+; Lymphocytes 2 % (20-55); Segmented Neutrophils 90 % (50-85); Target Cells Slight; Total Cells Counted 100
[2019-03-18 06:21] LABS: Macrocytosis Slight; Platelet Estimate Decreased
[2019-03-18 06:21] LABS: Partial Thromboplastin Time 51.4 SECS (20.8-36.0)
[2019-03-18 06:27] LABS: Calcium 7.7 MG/DL (8.5-10.1); Osmolality,Calculated 280.4 MOS/KG (273-304)
[2019-03-18] MEDS: PANTOPRAZOLE 40 MG TABLET PO SCH ×2 (08:01→18:04)
[2019-03-18] MEDS: PROPRANOLOL 10 MG TABLET PO SCH ×2 (08:01→21:20)
[2019-03-18] MEDS: SODIUM BICARBONATE 650 MG TABLET PO SCH ×2 (08:01→21:20)
[2019-03-18] MEDS: SPIRONOLACTONE 50 MG TABLET PO SCH (08:01)
[2019-03-18] MEDS: FUROSEMIDE 40 MG/4 ML VIAL IV SCH (08:01)
[2019-03-18] MEDS: FOLIC ACID 1 MG TABLET PO SCH (08:01)
[2019-03-18] MEDS: PIPERACILLIN/TAZOBACTAM 3,375 MG in SODIUM CHLORIDE 0.9% 100 ML IV SCH ×3 (08:02→17:38)
[2019-03-18] MEDS: prednisoLONE 15 MG/5 ML ORAL.SYR PO SCH (08:02)
[2019-03-18] MEDS: LACTULOSE 20 GM/30 ML UDCUP PO SCH (08:02)
[2019-03-18] MEDS: POTASSIUM CHLORIDE 20 MEQ/15 ML UDCUP PO SCH (08:02)
[2019-03-18] MEDS: PHYTONADIONE 5 MG/5 ML ORAL.SYR PO SCH (08:02)
[2019-03-18 08:59] LABS: Neutrophils,Peritoneal Fluid 94 %
[2019-03-18 09:00] LABS: RBC,Peritoneal Fluid 1204 T/CUMM
[2019-03-18 10:33] LABS: Hematocrit 19.8 VOL% (42.0-52.0); Hemoglobin 7.1 GM/DL (14.0-18.0)
[2019-03-18] MEDS ORDERED: traMADol 50 MG TABLET PO PRN (12:56)
[2019-03-18] MEDS: LACTATED RINGERS 1,000 ML IV SCH (17:37)
[2019-03-19] MEDS: PIPERACILLIN/TAZOBACTAM 3,375 MG in SODIUM CHLORIDE 0.9% 100 ML IV SCH ×3 (03:17→17:03)
[2019-03-19 04:23] LABS: Basophils # 0.1 10*3/uL (0.0-0.2); Basophils % 0.3 % (0.0-0.8); Eosinophils % 0.1 % (0.00-10.9); Hematocrit 22.6 VOL% (42.0-52.0); Hemoglobin 7.9 GM/DL (14.0-18.0); Immature Granulocytes % 3.9 %; Immature Granulocytes Absolute 0.84 #; Lymphocytes # 1.5 10*3/uL (1.4-4.0); Mean Platelet Volume 11.7 FL (9.6-12.0); Monocytes % 11.4 % (1.7-12.7); Neutrophils % 77.3 % (38.7-73.9); Red Blood Count 2.33 MC/CUMM (3.8-5.5); Red Cell Distribution Width 22.1 % (9.3-17.3); White Blood Count 21.3 T/CUMM (4-12)
[2019-03-19 04:29] LABS: Calcium 8.1 MG/DL (8.5-10.1)
[2019-03-19 04:30] LABS: Platelet Count 125 T/CUMM (130-400)
[2019-03-19 04:31] LABS: INR 1.8; PT Patient Result 19.5 SECS (9.6-12.2)
[2019-03-19 04:39] LABS: Partial Thromboplastin Time 52.4 SECS (20.8-36.0)
[2019-03-19 04:53] LABS: Band Neutrophils 1 % (0-10); Hypochromasia 1+; Lymphocytes 7 % (20-55); Macrocytosis Slight; Platelet Estimate Normal; Segmented Neutrophils 84 % (50-85); Total Cells Counted 100
[2019-03-19] MEDS: LACTATED RINGERS 1,000 ML IV SCH (06:50)
[2019-03-19] MEDS: POTASSIUM CHLORIDE 20 MEQ/15 ML UDCUP PO SCH (08:01)
[2019-03-19] MEDS: PROPRANOLOL 10 MG TABLET PO SCH ×2 (08:02→20:44)
[2019-03-19] MEDS: PANTOPRAZOLE 40 MG TABLET PO SCH ×2 (08:02→18:56)
[2019-03-19] MEDS: SPIRONOLACTONE 50 MG TABLET PO SCH (08:02)
[2019-03-19] MEDS: LACTULOSE 20 GM/30 ML UDCUP PO SCH (08:02)
[2019-03-19] MEDS: FOLIC ACID 1 MG TABLET PO SCH (08:02)
[2019-03-19] MEDS: SODIUM BICARBONATE 650 MG TABLET PO SCH ×2 (08:02→20:44)
[2019-03-19] MEDS: prednisoLONE 15 MG/5 ML ORAL.SYR PO SCH (08:03)
[2019-03-19] MEDS: FUROSEMIDE 40 MG/4 ML VIAL IV SCH (08:04)
[2019-03-20] MEDS: PIPERACILLIN/TAZOBACTAM 3,375 MG in SODIUM CHLORIDE 0.9% 100 ML IV SCH ×2 (01:57→11:00)
[2019-03-20 05:31] LABS: Basophils # 0.1 10*3/uL (0.0-0.2); Basophils % 0.3 % (0.0-0.8); Eosinophils % 0.1 % (0.00-10.9); Hematocrit 24.1 VOL% (42.0-52.0); Hemoglobin 8.6 GM/DL (14.0-18.0); Immature Granulocytes % 6.5 %; Immature Granulocytes Absolute 1.44 #; Lymphocytes # 2.2 10*3/uL (1.4-4.0); Lymphocytes % 9.8 % (21.2-54.2); Mean Corpuscular HGB Conc 35.7 GM/DL (32-36); Mean Corpuscular Volume 96.4 FL (87-102); Mean Platelet Volume 11.6 FL (9.6-12.0); Monocytes % 11.9 % (1.7-12.7); Neutrophils % 71.4 % (38.7-73.9); Platelet Count 134 T/CUMM (130-400); Red Cell Distribution Width 21.8 % (9.3-17.3)
[2019-03-20 05:32] LABS: Basophils % 0.2 % (0.0-0.8); Eosinophils % 0.2 % (0.00-10.9); Hematocrit 23.5 VOL% (42.0-52.0); Hemoglobin 8.4 GM/DL (14.0-18.0); Immature Granulocytes % 6.6 %; Immature Granulocytes Absolute 1.43 #; Lymphocytes # 2.1 10*3/uL (1.4-4.0); Lymphocytes % 9.7 % (21.2-54.2); Mean Corpuscular HGB Conc 35.7 GM/DL (32-36); Mean Corpuscular Volume 95.5 FL (87-102); Mean Platelet Volume 11.8 FL (9.6-12.0); Monocytes % 12.1 % (1.7-12.7); Neutrophils % 71.2 % (38.7-73.9); Platelet Count 138 T/CUMM (130-400); Red Blood Count 2.46 MC/CUMM (3.8-5.5); Red Cell Distribution Width 21.8 % (9.3-17.3); White Blood Count 21.8 T/CUMM (4-12)
[2019-03-20 05:53] LABS: Band Neutrophils 2 % (0-10); Lymphocytes 5 % (20-55); Segmented Neutrophils 81 % (50-85); Total Cells Counted 100
[2019-03-20 05:54] LABS: Hypochromasia 2+; Platelet Estimate Normal
[2019-03-20 05:59] LABS: Band Neutrophils 1 % (0-10); Hypochromasia 2+; Lymphocytes 11 % (20-55); Platelet Estimate Normal; Segmented Neutrophils 80 % (50-85); Total Cells Counted 100
[2019-03-20 06:00] LABS: Calcium 8.3 MG/DL (8.5-10.1); Osmolality,Calculated 279.2 MOS/KG (273-304)
[2019-03-20 06:16] LABS: % Iron Saturation 67.2 % (18-50); Ferritin 2678.3 ng/ml (26-388)
[2019-03-20 06:41] LABS: Folate 9.6 NG/ML (5.4-24.0); Vitamin B12 > 2000 PG/ML (211-911)
[2019-03-20 07:43] LABS: Sedimentation Rate-Westergren 75 MM/HR (0-20)
[2019-03-20] MEDS: PANTOPRAZOLE 40 MG TABLET PO SCH (08:26)
[2019-03-20] MEDS: POTASSIUM CHLORIDE 20 MEQ/15 ML UDCUP PO SCH (08:26)
[2019-03-20] MEDS: SODIUM BICARBONATE 650 MG TABLET PO SCH (08:26)
[2019-03-20] MEDS: FOLIC ACID 1 MG TABLET PO SCH (08:26)
[2019-03-20] MEDS: SPIRONOLACTONE 50 MG TABLET PO SCH (08:26)
[2019-03-20] MEDS: PROPRANOLOL 10 MG TABLET PO SCH (08:26)
[2019-03-20] MEDS: prednisoLONE 15 MG/5 ML ORAL.SYR PO SCH (08:27)
[2019-03-20] MEDS: LACTULOSE 20 GM/30 ML UDCUP PO SCH (08:30)
[2019-03-20] MEDS: FUROSEMIDE 40 MG/4 ML VIAL IV SCH (08:30)
[2019-03-20 09:44] LABS: Hemoglobin A1 (Alkaline) 97.7 % (96.5-98.5); Hemoglobin A2 (Alkaline) 2.3 % (1.5-3.5)
[2019-03-20 11:51] VITALS: BP 111/69
[2019-03-21] MEDS ORDERED: LEVOFLOXACIN 500 MG TABLET PO SCH (09:00)
== END 2019-03-20 12:55 | disposition home or self-care (01) | DRG 720 ==
LOC: EDUNIT# → EDBD → N.ED 05:31 → N.EDINP 10:50 → N.5E 11:42
PROVIDERS: ADMIT Hospitalist; ATTEND Hospitalist

== ENCOUNTER 2019-04-05 08:49 | Inpatient (IN) ==
[2019-04-05 09:37] LABS: Basophils % 0.2 % (0.0-0.8); Eosinophils % 0.1 % (0.00-10.9); Hemoglobin 10.1 GM/DL (14.0-18.0); Immature Granulocytes % 1.5 %; Immature Granulocytes Absolute 0.21 #; Lymphocytes # 1.2 10*3/uL (1.4-4.0); Lymphocytes % 8.8 % (21.2-54.2); Mean Corpuscular HGB Conc 36.1 GM/DL (32-36); Mean Corpuscular Volume 97.2 FL (87-102); Mean Platelet Volume 10.7 FL (9.6-12.0); Monocytes % 8.9 % (1.7-12.7); Neutrophils % 80.5 % (38.7-73.9); Platelet Count 72 T/CUMM (130-400); Red Blood Count 2.88 MC/CUMM (3.8-5.5); Red Cell Distribution Width 20.1 % (9.3-17.3)
[2019-04-05 09:43] LABS: INR 2.1
[2019-04-05 09:51] LABS: PT Patient Result 22.8 SECS (9.6-12.2)
[2019-04-05 10:21] LABS: Alanine Aminotransferase 91 U/L (16-61); Alkaline Phosphatase 147 U/L (45-117); Aspartate Amino Transferase 167 U/L (0-37); Blood Urea Nitrogen 31 MG/DL (7-18); Calcium 7.8 MG/DL (8.5-10.1); Glucose 101 MG/DL (74-106); Osmolality,Calculated 276.1 MOS/KG (273-304); Total Protein 7.1 G/DL (6.4-8.3)
[2019-04-05 11:05] LABS: Burr Cells Few; Target Cells Few
[2019-04-05 11:06] LABS: Platelet Estimate Decreased; Polychromasia Slight
[2019-04-05] MEDS ORDERED: ONDANSETRON 4 MG/2 ML VIAL IV PRN (12:39)
[2019-04-05 13:35] LABS: Apearance,Urine CLEAR (Clear); Bacteria,Urine Occasional /HPF (Few); Bilirubin,Urine Negative (Negative); Blood, Urine Small mg/dL (Negative); Glucose,Urine (UA) Negative (Negative); Hyaline Casts,Urine 17 /LPF (0-3); Ketones,Urine Negative (Negative); Mucus,Urine Occasional /LPF (Occasional); Nitrite,Urine Negative (Negative); Protein,Urine Negative; RBC,Urine 2 /HPF (0-4); Squamous Epithelial Cell,Urine Occasional /HPF (0-10); Urine Color Amber (Yellow); Urine Urobilinogen < 2.0 EU/DL (0.2-1.0); WBC,Urine 4 /HPF (0-6)
[2019-04-05] MEDS ORDERED: ALBUMIN 25% 50 GM in PREMIX 1 EACH IV ONE (21:35)
[2019-04-05] MEDS: FUROSEMIDE 40 MG/4 ML VIAL IV SCH (21:38)
[2019-04-05] MEDS: SPIRONOLACTONE 50 MG TABLET PO SCH (21:38)
[2019-04-05] MEDS: SODIUM BICARBONATE 650 MG TABLET PO SCH (21:44)
[2019-04-05] MEDS: PROPRANOLOL 10 MG TABLET PO SCH (21:51)
[2019-04-06] MEDS ORDERED: MEPERIDINE 25 MG/1 ML VIAL IM PRN (01:23)
[2019-04-06] MEDS: MEPERIDINE 25 MG/1 ML VIAL IM PRN (01:38)
[2019-04-06 04:39] LABS: Basophils % 0.3 % (0.0-0.8); Eosinophils # 0.5 10*3/uL (0.0-0.87); Eosinophils % 3.4 % (0.00-10.9); Hematocrit 18.1 VOL% (42.0-52.0); Hemoglobin 6.5 GM/DL (14.0-18.0); Immature Granulocytes % 3.3 %; Immature Granulocytes Absolute 0.48 #; Lymphocytes # 2.1 10*3/uL (1.4-4.0); Lymphocytes % 14.2 % (21.2-54.2); Mean Corpuscular HGB Conc 35.9 GM/DL (32-36); Mean Corpuscular Volume 96.8 FL (87-102); Mean Platelet Volume 11.5 FL (9.6-12.0); Monocytes % 11.5 % (1.7-12.7); Neutrophils % 67.3 % (38.7-73.9); Platelet Count 62 T/CUMM (130-400); Red Blood Count 1.87 MC/CUMM (3.8-5.5); Red Cell Distribution Width 20.5 % (9.3-17.3); White Blood Count 14.5 T/CUMM (4-12)
[2019-04-06 05:03] LABS: Hypochromasia 1+; Platelet Estimate Decreased
[2019-04-06 05:07] LABS: Albumin 2.3 G/DL (3.4-5.0); Bilirubin,Total 10.5 MG/DL (0.2-1.0); Calcium 7.2 MG/DL (8.5-10.1); Total Protein 5.9 G/DL (6.4-8.3)
[2019-04-06] MEDS ORDERED: SODIUM CHLORIDE 0.9% 1,000 ML IV PRN ×2 (07:42→15:44)
[2019-04-06 08:14] LABS: % Iron Saturation 73.5 % (18-50)
[2019-04-06 08:25] LABS: Basophils # 0.1 10*3/uL (0.0-0.2); Basophils % 0.4 % (0.0-0.8); Eosinophils # 0.6 10*3/uL (0.0-0.87); Eosinophils % 4.4 % (0.00-10.9); Hematocrit 18.7 VOL% (42.0-52.0); Hemoglobin 6.7 GM/DL (14.0-18.0); Immature Granulocytes % 3.9 %; Lymphocytes # 2.1 10*3/uL (1.4-4.0); Lymphocytes % 16.3 % (21.2-54.2); Mean Corpuscular HGB Conc 35.8 GM/DL (32-36); Mean Corpuscular Volume 99.5 FL (87-102); Monocytes % 11.8 % (1.7-12.7); Neutrophils % 63.2 % (38.7-73.9); Platelet Count 60 T/CUMM (130-400); Red Blood Count 1.88 MC/CUMM (3.8-5.5); Red Cell Distribution Width 20.3 % (9.3-17.3); White Blood Count 12.7 T/CUMM (4-12)
[2019-04-06 08:49] LABS: Platelet Estimate Decreased
[2019-04-06 08:50] LABS: Anisocytosis 1+; Macrocytosis 2+; Poikilocytosis 1+
[2019-04-06 08:51] LABS: Burr Cells Few
[2019-04-06] MEDS: FUROSEMIDE 40 MG/4 ML VIAL IV SCH ×2 (08:56→20:24)
[2019-04-06] MEDS: FOLIC ACID 1 MG TABLET PO SCH (08:57)
[2019-04-06] MEDS: SODIUM BICARBONATE 650 MG TABLET PO SCH ×2 (08:57→20:24)
[2019-04-06] MEDS ORDERED: LACTULOSE 20 GM/30 ML UDCUP PO SCH (09:00)
[2019-04-06] MEDS ORDERED: predniSONE 20 MG TABLET PO SCH (09:00)
[2019-04-06] MEDS ORDERED: PANTOPRAZOLE 40 MG TABLET PO SCH (09:00)
[2019-04-06 09:25] LABS: Folate 10.1 NG/ML (5.4-24.0); Vitamin B12 > 2000 PG/ML (211-911)
[2019-04-06 09:29] LABS: Sedimentation Rate-Westergren 52 MM/HR (0-20)
[2019-04-06] MEDS: SPIRONOLACTONE 50 MG TABLET PO SCH ×2 (10:42→20:24)
[2019-04-06] MEDS: PROPRANOLOL 10 MG TABLET PO SCH (10:43)
[2019-04-06 11:28] LABS: Hemoglobin A1 (Alkaline) 97.2 % (96.5-98.5); Hemoglobin A2 (Alkaline) 2.8 % (1.5-3.5)
[2019-04-06 15:59] LABS: Hematocrit 21.3 VOL% (42.0-52.0); Hemoglobin 7.7 GM/DL (14.0-18.0)
[2019-04-06] MEDS ORDERED: ALBUMIN 25% 50 GM in PREMIX 1 EACH IV ONE (16:00)
[2019-04-07 01:19] LABS: Hemoglobin 8.4 GM/DL (14.0-18.0)
[2019-04-07 05:33] LABS: Basophils % 0.2 % (0.0-0.8); Eosinophils % 0.2 % (0.00-10.9); Hemoglobin 9.1 GM/DL (14.0-18.0); Immature Granulocytes % 1.9 %; Immature Granulocytes Absolute 0.27 #; Lymphocytes # 1.1 10*3/uL (1.4-4.0); Lymphocytes % 7.5 % (21.2-54.2); Mean Corpuscular HGB Conc 36.4 GM/DL (32-36); Mean Corpuscular Volume 92.9 FL (87-102); Mean Platelet Volume 11.2 FL (9.6-12.0); Monocytes % 12.1 % (1.7-12.7); Neutrophils % 78.1 % (38.7-73.9); Platelet Count 52 T/CUMM (130-400); Red Blood Count 2.69 MC/CUMM (3.8-5.5); Red Cell Distribution Width 20.3 % (9.3-17.3)
[2019-04-07 05:54] LABS: Hypochromasia 1+; Platelet Estimate Decreased
[2019-04-07 05:55] LABS: Macrocytosis Slight
[2019-04-07 06:02] LABS: Calcium 7.9 MG/DL (8.5-10.1); Osmolality,Calculated 281.1 MOS/KG (273-304)
[2019-04-07] MEDS: FUROSEMIDE 40 MG/4 ML VIAL IV SCH ×2 (08:51→21:33)
[2019-04-07] MEDS: PHYTONADIONE 5 MG/5 ML ORAL.SYR PO SCH (08:51)
[2019-04-07] MEDS: SPIRONOLACTONE 50 MG TABLET PO SCH ×2 (08:51→21:33)
[2019-04-07] MEDS: PANTOPRAZOLE 40 MG TABLET PO SCH ×2 (08:51→21:34)
[2019-04-07] MEDS: SODIUM BICARBONATE 650 MG TABLET PO SCH ×2 (08:51→21:34)
[2019-04-07] MEDS: FOLIC ACID 1 MG TABLET PO SCH (08:51)
[2019-04-07] MEDS: prednisoLONE 15 MG/5 ML ORAL.SYR PO SCH (08:52)
[2019-04-07] MEDS ORDERED: prednisoLONE 15 MG/5 ML ORAL.SYR PO SCH (09:00)
[2019-04-07 15:39] LABS: Osmolality, Serum 284 mOsm/kg (275 - 295)
[2019-04-07 17:01] LABS: Osmolality, Urine 348 mOsm/kg (150 - 1150)
[2019-04-08 05:34] LABS: Basophils % 0.2 % (0.0-0.8); Eosinophils # 0.2 10*3/uL (0.0-0.87); Eosinophils % 0.8 % (0.00-10.9); Hematocrit 24.7 VOL% (42.0-52.0); Immature Granulocytes % 2.1 %; Immature Granulocytes Absolute 0.38 #; Lymphocytes % 11.1 % (21.2-54.2); Mean Corpuscular HGB Conc 36.4 GM/DL (32-36); Mean Corpuscular Volume 91.8 FL (87-102); Mean Platelet Volume 11.4 FL (9.6-12.0); Monocytes % 9.9 % (1.7-12.7); Neutrophils % 75.9 % (38.7-73.9); Platelet Count 50 T/CUMM (130-400); Red Blood Count 2.69 MC/CUMM (3.8-5.5); Red Cell Distribution Width 20.4 % (9.3-17.3)
[2019-04-08 05:41] LABS: INR 2.4
[2019-04-08 05:56] LABS: PT Patient Result 25.6 SECS (9.6-12.2)
[2019-04-08 05:58] LABS: Band Neutrophils 2 % (0-10); Calcium 8.4 MG/DL (8.5-10.1); Hypochromasia 1+; Lymphocytes 11 % (20-55); Osmolality,Calculated 283.7 MOS/KG (273-304); Platelet Estimate Decreased; Segmented Neutrophils 79 % (50-85); Total Cells Counted 100
[2019-04-08 05:59] LABS: Macrocytosis Slight
[2019-04-08 06:02] LABS: Albumin 2.5 G/DL (3.4-5.0); Bilirubin,Direct 5.16 MG/DL (0.0-0.20); Bilirubin,Indirect 5.4 MG/DL (0.0-1.0); Bilirubin,Total 10.6 MG/DL (0.2-1.0); Total Protein 6.4 G/DL (6.4-8.3)
[2019-04-08] MEDS: PHYTONADIONE 5 MG/5 ML ORAL.SYR PO SCH (09:29)
[2019-04-08] MEDS: SODIUM BICARBONATE 650 MG TABLET PO SCH (09:30)
[2019-04-08] MEDS: prednisoLONE 15 MG/5 ML ORAL.SYR PO SCH (09:30)
[2019-04-08] MEDS: FOLIC ACID 1 MG TABLET PO SCH (09:30)
[2019-04-08] MEDS: PANTOPRAZOLE 40 MG TABLET PO SCH ×2 (09:30→21:39)
[2019-04-08] MEDS: SPIRONOLACTONE 50 MG TABLET PO SCH ×2 (09:31→21:39)
[2019-04-08] MEDS: FUROSEMIDE 40 MG/4 ML VIAL IV SCH ×2 (09:31→21:39)
[2019-04-09 05:38] LABS: Basophils % 0.2 % (0.0-0.8); Eosinophils # 0.1 10*3/uL (0.0-0.87); Eosinophils % 0.7 % (0.00-10.9); Hematocrit 23.2 VOL% (42.0-52.0); Hemoglobin 8.3 GM/DL (14.0-18.0); Immature Granulocytes % 2.6 %; Lymphocytes # 1.8 10*3/uL (1.4-4.0); Lymphocytes % 9.2 % (21.2-54.2); Mean Corpuscular HGB Conc 35.8 GM/DL (32-36); Mean Corpuscular Volume 95.1 FL (87-102); Mean Platelet Volume 10.7 FL (9.6-12.0); Monocytes % 13.4 % (1.7-12.7); Neutrophils % 73.9 % (38.7-73.9); Platelet Count 51 T/CUMM (130-400); Red Blood Count 2.44 MC/CUMM (3.8-5.5); Red Cell Distribution Width 20.8 % (9.3-17.3)
[2019-04-09 06:05] LABS: Hypochromasia 1+; Ovalocytes Slight; Platelet Estimate Decreased
[2019-04-09 06:06] LABS: Macrocytosis Slight
[2019-04-09] MEDS: PANTOPRAZOLE 40 MG TABLET PO SCH ×2 (08:43→20:12)
[2019-04-09] MEDS: FOLIC ACID 1 MG TABLET PO SCH (08:43)
[2019-04-09] MEDS: SPIRONOLACTONE 50 MG TABLET PO SCH ×2 (08:43→20:12)
[2019-04-09] MEDS: FUROSEMIDE 40 MG/4 ML VIAL IV SCH ×2 (08:43→20:11)
[2019-04-09] MEDS: PHYTONADIONE 5 MG/5 ML ORAL.SYR PO SCH (08:44)
[2019-04-09] MEDS: prednisoLONE 15 MG/5 ML ORAL.SYR PO SCH (08:50)
[2019-04-09] MEDS: metOLazone 2.5 MG TABLET PO SCH (16:07)
[2019-04-09] MEDS ORDERED: traMADol 50 MG TABLET PO PRN (17:39)
[2019-04-09 18:35] LABS: Apearance,Urine CLEAR (Clear); Bilirubin,Urine Negative (Negative); Blood, Urine Negative (Negative); Glucose,Urine (UA) 50 mg/dL (Negative); Ketones,Urine Negative (Negative); Nitrite,Urine Negative (Negative); Protein,Urine Negative; RBC,Urine 3 /HPF (0-4); Squamous Epithelial Cell,Urine Occasional /HPF (0-10); Urine Color Amber (Yellow); Urine Specific Gravity 1.009 (1.001-1.035); Urine Urobilinogen < 2.0 EU/DL (0.2-1.0)
[2019-04-10 05:47] LABS: Basophils % 0.2 % (0.0-0.8); Eosinophils # 0.1 10*3/uL (0.0-0.87); Eosinophils % 0.7 % (0.00-10.9); Hematocrit 23.6 VOL% (42.0-52.0); Hemoglobin 8.6 GM/DL (14.0-18.0); Immature Granulocytes % 3.1 %; Immature Granulocytes Absolute 0.52 #; Lymphocytes # 2.2 10*3/uL (1.4-4.0); Lymphocytes % 12.7 % (21.2-54.2); Mean Corpuscular HGB Conc 36.4 GM/DL (32-36); Mean Corpuscular Volume 93.3 FL (87-102); Mean Platelet Volume 11.6 FL (9.6-12.0); Monocytes % 10.7 % (1.7-12.7); Neutrophils % 72.6 % (38.7-73.9); Platelet Count 46 T/CUMM (130-400); Red Blood Count 2.53 MC/CUMM (3.8-5.5); Red Cell Distribution Width 20.2 % (9.3-17.3)
[2019-04-10 06:12] LABS: Albumin 2.4 G/DL (3.4-5.0); Bilirubin,Total 10.9 MG/DL (0.2-1.0); Calcium 8.5 MG/DL (8.5-10.1); Osmolality,Calculated 285.7 MOS/KG (273-304); Total Protein 6.3 G/DL (6.4-8.3)
[2019-04-10 06:16] LABS: Hypochromasia 1+; Lymphocytes 16 % (20-55); Platelet Estimate Decreased; Segmented Neutrophils 73 % (50-85); Target Cells Few; Total Cells Counted 100
[2019-04-10 06:17] LABS: Macrocytosis Slight
[2019-04-10] MEDS: prednisoLONE 15 MG/5 ML ORAL.SYR PO SCH (09:46)
[2019-04-10] MEDS: FUROSEMIDE 40 MG/4 ML VIAL IV SCH (09:47)
[2019-04-10] MEDS: metOLazone 2.5 MG TABLET PO SCH (09:47)
[2019-04-10] MEDS: PANTOPRAZOLE 40 MG TABLET PO SCH (09:47)
[2019-04-10] MEDS: FOLIC ACID 1 MG TABLET PO SCH (09:47)
[2019-04-10] MEDS: SPIRONOLACTONE 50 MG TABLET PO SCH (09:47)
[2019-04-10] MEDS: MEPERIDINE 25 MG/1 ML VIAL IM PRN (09:53)
[2019-04-10 12:06] VITALS: BP 135/84
== END 2019-04-10 13:52 | disposition hospice, home (50) | DRG 280 ==
LOC: N.ED 08:49 → SUATTDRO 12:39 → N.EDINP 12:39 → N.TELEN 14:31
PROVIDERS: ADMIT Family Medicine; ATTEND Hospitalist